=== PATIENT | female | born 1950 | race African-American/Black ===

== ENCOUNTER 2017-01-04 21:02 | Observation (INO) | payer MEDICARE, OTHER ==
[2017-01-04] MEDS ORDERED: ASPIRIN 81 MG TABLET, CHEWABLE PO ONE (21:22)
[2017-01-04 22:30] LABS: ABSOLUTE BASOPHILS # (AUTO) 0.1 10^3/uL (0.0-0.2); ABSOLUTE EOSINOPHILS # (AUTO) 0.1 10^3/uL (0.0-0.6); ABSOLUTE LYMPHOCYTES (AUTO) 1.6 10^3/uL (0.5-4.7); ABSOLUTE MONOCYTES (AUTO) 0.4 10^3/uL (0.1-1.4); ABSOLUTE NEUT (AUTO) 5.9 10^3/uL (1.7-8.2); BASOPHILS % (AUTO) 0.7 % (0-2); EOSINOPHILS % (AUTO) 0.7 % (0-6); HEMOGLOBIN 11.6 g/dL (12.0-15.5); HGB HCT DIFFERENCE -2.2; LYMPHOCYTES % (AUTO) 19.6 % (13-45); MEAN CORPUSCULAR HEMOGLOBIN 27.7 pg (27.0-33.4); MEAN CORPUSCULAR HGB CONC 31.3 g/dL (32.0-36.0); MEAN CORPUSCULAR VOLUME 89 fl (80-97); MONOCYTES % (AUTO) 5.5 % (3-13); RED BLOOD COUNT 4.18 10^6/uL (3.72-5.28); RED CELL DISTRIBUTION WIDTH 15.6 % (11.5-14.0); SEGMENTED NEUTROPHILS % (AUTO) 73.5 % (42-78)
--- NOTE | 2017-01-04 22:33 | EKG REPORT ---
SEVERITY:- BORDERLINE ECG - SINUS RHYTHM BORDERLINE T ABNORMALITIES, ANT-LAT LEADS ST ELEVATION, ANTERIOR LEADS V1 AND V2, CONSIDER WI : Confirmed by: Sadie Goldstein 04-Jan-2017 22:32:35
--- NOTE | 2017-01-04 22:44 | RADIOLOGY REPORT (SQ) ---
EXAM DESCRIPTION: CHEST SINGLE VIEW COMPLETED DATE/TIME: 01/04/2017 10:37 pm REASON FOR STUDY: CP COMPARISON: May 2015 EXAM PARAMETERS: NUMBER OF VIEWS: One view. TECHNIQUE: Single frontal radiographic view of the chest acquired. RADIATION DOSE: NA LIMITATIONS: None. FINDINGS: LUNGS AND PLEURA: No opacities, masses or pneumothorax. No pleural effusion. MEDIASTINUM AND HILAR STRUCTURES: No masses. Contour normal. HEART AND VASCULAR STRUCTURES: Heart normal in size. Normal vasculature. BONES: No acute findings. HARDWARE: None in the chest. OTHER: No other significant finding. IMPRESSION: NO ACUTE RADIOGRAPHIC FINDING IN THE CHEST. TECHNICAL DOCUMENTATION: JOB ID: [id number]
[2017-01-04 22:47] LABS: ALANINE AMINOTRANSFERASE 45 U/L (9-52); ALBUMIN 4.3 g/dL (3.5-5.0); ALKALINE PHOSPHATASE 114 U/L (38-126); ANION GAP 11 (5-19); ASPARTATE AMINO TRANSFERASE 25 U/L (14-36); BILIRUBIN,DIRECT 0.3 mg/dL (0.0-0.4); BILIRUBIN,TOTAL 0.8 mg/dL (0.2-1.3); BLOOD UREA NITROGEN 13 mg/dL (7-20); CALCIUM 9.7 mg/dL (8.4-10.2); CARBON DIOXIDE 27 mmol/L (22-30); CHLORIDE 103 mmol/L (98-107); CREATINE KINASE 118 U/L (30-135); CREATININE RESULT 0.95 mg/dL (0.52-1.25); GLUCOSE 115 mg/dL (75-110); POTASSIUM 3.5 mmol/L (3.6-5.0); SODIUM 140.6 mmol/L (137-145); TOTAL PROTEIN 8.2 g/dL (6.3-8.2)
[2017-01-04] MEDS ORDERED: FENTANYL CITRATE INJ/PF 100 MCG/2 ML AMPUL IV ONE (22:53)
[2017-01-04 22:58] LABS: CREATINE KINASE MB 0.63 ng/mL (<4.55)
[2017-01-04 22:59] LABS: TROPONIN I < 0.012 ng/mL
--- NOTE | 2017-01-04 23:53 | ER Document Report ---
ED General - General Mode of Arrival: Ambulatory Information source: Patient TRAVEL OUTSIDE OF THE [place] IN LAST 30 DAYS: No <LUPE CASILLAS - Last Filed: 01/05/17 03:58> <DEIDRE HERNANDEZ - Last Filed: 01/17/17 11:21> - General Chief Complaint: Neck Pain < 24hrs old Stated Complaint: NECK AND SHOULDER PAIN Time Seen by Provider: 01/04/17 21:36 Notes: Patient is a 66-year-old female who presents to the emergency department today with complaints of right-sided neck pain. Patient states that she is currently going to physical therapy from a fall several weeks ago and she began hurting at physical therapy yesterday and it has been much worse today. Patient states it feels like there is a "muscle spasm" in her neck. Patient mentions she has had left arm numbness and tingling prior to arrival. Patient denies any chest pain, shortness of breath, or history of [place]. (LUPE CASILLAS) - Related Data Allergies/Adverse Reactions: Penicillins Allergy (Mild, Verified 12/10/15 05:43) rash Home Medications: Current Home Medications Amlodipine Besylate [Norvasc 10 mg Tablet] 10 mg PO DAILY 01/05/17 [History] Aspirin [Aspirin EC] 81 mg PO DAILY 01/05/17 [History] Atorvastatin Calcium [Lipitor 20 mg Tablet] 20 mg PO DAILY 01/05/17 [History] Diclofenac Sodium [Voltaren] 1 applic TP DAILY 01/05/17 [History] Ergocalciferol (Vitamin D2) [Vitamin D2] 50,000 unit PO SA@1000 01/05/17 [ History] Ezetimibe [Zetia 10 mg Tablet] 10 mg PO QHS 01/05/17 [History] Glimepiride [Amaryl 1 mg Tablet] 1 mg PO BID 01/05/17 [History] Hydrochlorothiazide 25 mg PO DAILY 01/05/17 [History] Levothyroxine Sodium [Synthroid 0.1 mg Tablet] 0.1 mg PO DAILY 01/05/17 [History ] Loratadine [Claritin 10 mg Tablet] 10 mg PO DAILYP PRN 01/05/17 [History] Potassium Chloride [Klor-Con 10 Meq Tablet.sa] 10 meq PO DAILY 01/05/17 [History ] Sitagliptin Phosphate [Januvia] 100 mg PO DAILY 01/05/17 [History] Valsartan [Diovan 160 mg Tablet] 160 mg PO DAILY 01/05/17 [History] Past Medical History - General Information source: Patient - Social History Smoking Status: Unknown if Ever Smoked Cigarette use (# per day): No Lives with: Family Family History: Reviewed & Not Pertinent, CAD, Malignancy Patient has suicidal ideation: No Patient has homicidal ideation: No - Past Medical History Cardiac Medical History: Reports: Hx Hypercholesterolemia, Hx Hypertension Endocrine Medical History: Reports: Hx Diabetes Mellitus Type 2 Musculoskeltal Medical History: Reports Hx Arthritis - hands Past Surgical History: Reports: Hx Appendectomy, Hx Cholecystectomy, Hx Hysterectomy - partial - Immunizations Immunizations up to date: Yes Hx Diphtheria, Pertussis, Tetanus Vaccination: Yes <LUPE CASILLAS - Last Filed: 01/05/17 03:58> Review of Systems - Review of Systems Constitutional: No symptoms reported EENT: See HPI, Throat pain Cardiovascular: denies: Chest pain Respiratory: denies: Short of breath Gastrointestinal: No symptoms reported Genitourinary: No symptoms reported Female Genitourinary: No symptoms reported Musculoskeletal: See HPI, Muscle pain - right neck swelling Skin: No symptoms reported Hematologic/Lymphatic: No symptoms reported Neurological/Psychological: No symptoms reported -: Yes All other systems reviewed and negative <LUPE CASILLAS - Last Filed: 01/05/17 03:58> Physical Exam <LUPE CASILLAS - Last Filed: 01/05/17 03:58> <DEIDRE HERNANDEZ - Last Filed: 01/17/17 11:21> - Vital signs Vitals: Temp Pulse Resp BP Pulse Ox 98.7 F 65 20 187/79 H 98 01/04/17 21:05 01/04/17 21:05 01/04/17 21:05 01/04/17 21:05 01/04/17 21:05 - Notes Notes: Physical Exam: General: Alert, appears well. HEENT: Normocephalic. Atraumatic. PERRL. Extraocular movements intact. Oropharynx clear. Post nasal drainage. No posterior pharynx swelling or exudate. Tenderness with palpation with associated swelling over right parotid gland. Neck: Supple. Non-tender. Posterior cervical muscle tenderness with palpation. Respiratory: No respiratory distress. Clear and equal breath sounds bilaterally. Cardiovascular: Regular rate and rhythm. Abdominal: Normal Inspection. Non-tender. No distension. Normal Bowel Sounds. Back: Non-tender. No deformity or step off. Extremities: Moves all four extremities. Upper extremities: Normal inspection. Normal ROM. Lower extremities: Normal inspection. No edema. Normal ROM. Neurological: Normal cognition. AAOx4. Normal speech. Psychological: Normal affect. Normal Mood. Skin: Warm. Dry. Normal color. (LUPE CASILLAS) Course - Laboratory Result Diagrams: 01/04/17 22:15 01/04/17 22:15 <LUPE CASILLAS - Last Filed: 01/05/17 03:58> - Laboratory Result Diagrams: 01/04/17 22:15 01/05/17 10:05 <DEIDRE HERNANDEZ - Last Filed: 01/17/17 11:21> - Re-evaluation Re-evalutation: 01/05/17 01:46 Patient presents the emergency department with chief complaint of neck and shoulder pain. She is holding her neck stiff and complaining of pain going down the right side of her neck parathoracic region into her right shoulder. She is a patient of Dr. Bean fell a few weeks ago down a flight of stairs in [place] and Dr. Bean has her doing physical therapy. Daughters at the bedside states she has been doing activities lately that have been activity that she has not done in the past 30-40 years. She woke up this morning she was found some tension in the right side of her neck with holding it stiff and sore not wanting to move it then experienced pain into her parathoracic region. She said she also had some tingling in left hand which lasted about 5 minutes and then resolved no headache blurred vision or double vision. She has no midline cervical tenderness at the para cervical parathoracic on the right with good radial ulnar axillary median nerve. She also complained of a sore throat and pain over her right parotid gland area. The triage nurse did an EKG which was brought straight back to me and highly abnormal compared to her previous showing ST segment changes anteriorly without reciprocal changes. I spoke on the telephone with Dr. Goldstein who read this EKG as well and he was highly concerned patient vehemently denies any chest pain shortness of breath diaphoresis nausea GI appetite or exertional chest pain. She does have a history of [id number] diabetes and high blood pressure. She has seen Dr. Buckner in the past told that she has angina and has a stress test a few years ago which was negative. CT of the neck was negative for acute pathology initial troponin chest x-ray labs are all stable. And is sleeping. Spoke with Dr. Lewis wanted the patient to be seen by cardiology first thing in the a.m. talk to Dr. Ramirez and do serial troponins admit her cardiac consult in the a.m. for observation and this was explained to the family as well. 01/05/17 02:[address] Ramirez to do a second set of cardiac enzymes is negative and unchanged from the previous. (DEIDRE HERNANDEZ) - Vital Signs Vital signs: Temp Pulse Resp BP Pulse Ox 98.5 F 80 18 166/70 H 99 01/06/17 17:03 01/06/17 17:03 01/06/17 17:03 01/06/17 17:03 01/06/17 17:03 - Laboratory Laboratory results interpreted by me: 01/04/17 01/04/17 22:15 22:15 Hgb 11.6 L MCHC 31.3 L RDW 15.6 H Potassium 3.5 L Est GFR (Non-Af Amer) 59 L Glucose 115 H - EKG Interpretation by Me Additional EKG results interpreted by me: 01/05/17 03:19 EKG #[address] segment change from previous no reciprocal changes. EKG #2 sinus at 57 bpm nonspecific T-wave abnormalities. (DEIDRE HERNANDEZ) Discharge <LUPE CASILLAS - Last Filed: 01/05/17 03:58> - Discharge Admitting Provider: Hospitalist Unit Admitted: Telemetry <DEIDRE HERNANDEZ - Last Filed: 01/17/17 11:21> - Discharge Clinical Impression: Abnormal EKG Cervical strain Qualifiers: Encounter type: initial encounter Qualified Code(s): S16.1XXA - Strain of muscle, fascia and tendon at neck level, initial encounter Condition: Stable Disposition: ADMITTED OBSERVATION Scribe Attestation: 01/05/17 02:42 I personally performed the services described in the documentation reviewed the documentation recorded by my scribe in my presence and it accurately and completely records my words and actions (DEIDRE HERNANDEZ) Scribe Documentation - Scribe Written by Scribe:: Jayla Charlton, 01/05/2017 acting as scribe for :: Diego <LUPE CASILLAS - Last Filed: 01/05/17 03:58>
--- NOTE | 2017-01-05 01:11 | RADIOLOGY REPORT (SQ) ---
EXAM DESCRIPTION: CT SOFT TISSUE NECK WITH COMPLETED DATE/TIME: 01/05/2017 12:22 am REASON FOR STUDY: neck pain swelling COMPARISON: CT cervical spine 02/05/2013 TECHNIQUE: Post IV contrasted scanning from skull base through lung apices with review of bone, soft tissue and lung windows. Reconstructed coronal and sagittal MPR images reviewed. All images stored on PACS. All CT scanners at this facility use dose modulation, iterative reconstruction, and/or weight based d osing when appropriate to reduce radiation dose to as low as reasonably achievable (ALARA). [facility]: Dose Right [facility]: CareDose [facility]: Dose Right [facility]: Teradose 4D [facility]: OneTag CONTRAST TYPE AND DOSE: contrast/concentration: Isovue 370.00 mg/ml; Total Contrast Delivered: 75.0 ml; Total Saline Delivered: 55.1 ml RENAL FUNCTION: Creatinine 0.95 RADIATION DOSE: 16.49 . LIMITATIONS: None. FINDINGS: SKULL BASE: Intact. MAJOR SALIVARY GLANDS: No solid or cystic masses. No inflammatory changes. LYMPHADENOPATHY: No adenopathy. MUCOSAL MASSES OR ASYMMETRY: No mucosal masses or asymmetry. LARYNX/CORDS: No abnormal findings. VASCULAR STRUCTURES: The major vessels are patent. LUNG APICES: Clear. BONES: Multilevel degenerative changes in the spine. THYROID: Normal size. No masses. PARANASAL SINUSES: Clear. IMPRESSION: No acute findings. TECHNICAL DOCUMENTATION: JOB ID: [id number] RI-64 Quality ID # [id number]: Final reports with documentation of one or more dose reduction techniques (e.g., Au tomated exposure control, adjustment of the mA and/or kV according to patient size, use of iterative reconstruction technique) 2010 [employer]- All Rights Reserved
[2017-01-05] MEDS ORDERED: ASPIRIN 325 MG TABLET PO ONE (01:49)
[2017-01-05 03:31] LABS: ADD ON TESTING BLD IN LAB ACKNOWLEDGE
[2017-01-05 03:40] LABS: MAGNESIUM 1.7 mg/dL (1.6-2.3)
[2017-01-05] MEDS ORDERED: DEXTROSE 50%-WATER 25 GM/50 ML DISP.SYRIN IV PRN ×2 (04:16)
[2017-01-05] MEDS ORDERED: GLUCAGON,HUMAN RECOMB 1 MG INJ IM PRN (04:16)
[2017-01-05] MEDS ORDERED: DEXTROSE 40% GEL 15 GM TUBE PO PRN ×2 (04:16)
[2017-01-05] MEDS ORDERED: MAGNESIUM HYDROXIDE SUSP 30 ML UDCUP PO PRN (04:28)
[2017-01-05] MEDS ORDERED: POTASSIUM CHLORIDE 20 MEQ/15 ML UDCUP PO ONE ×2 (04:30→06:00)
[2017-01-05 07:35] LABS: Direct HDL 82 mg/dL (>40); TRIGLYCERIDES 66 mg/dL (<150)
[2017-01-05 07:46] LABS: DIRECT LDL 47 mg/dL (<100)
[2017-01-05] MEDS: OXYCODONE HCL IR 5 MG TABLET PO PRN ×3 (08:53→23:57)
[2017-01-05] MEDS: ACETAMINOPHEN 325 MG TABLET PO PRN ×2 (08:53→14:54)
[2017-01-05] MEDS: ENOXAPARIN SODIUM INJ 40 MG/0.4 ML DISP.SYRIN SUBCUT SCH (08:54)
--- NOTE | 2017-01-05 09:52 | PDOC H&P ---
History of Present Illness Admission Date/PCP: 01/05/17 02:49 CLEMENTINA DANIELS MD Patient complains of: Right neck pain History of Present Illness: MERCEDES MODI is a 66 year old obese -[place] female with underlying type 2 diabetes mellitus, hypertension, hypothyroidism, and hyperlipidemia, but with no other known cardiac disease, having undergone a negative stress test several years ago by Dr. Leiws who presents to the emergency room for evaluation of new onset of pronounced muscle spasm-like pain on the right side of her neck that radiates to her right shoulder. No prior such pain. She has been undergoing physical therapy after suffering a fall down a flight of stairs several weeks ago. However, she again reiterates this pain in the right side of her neck is new. 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 Went to work yesterday. Abnormal EKG, which ER physician discussed with Dr. Goldstein, on-call crop farm helper , prior to my being called. Per emergency room physician, Dr. Goldstein reviewed the tracing online and was quite concerned about its appearance. He felt the patient should be placed at least an observation bed with trending of troponins , with consult to Dr. Lewis, her usual crop farm helper. There has been no chest pain. Brief episode of left upper extremity numbness and tingling, which resolved prior to her arrival in the emergency room, and has not recurred. Negative stress test several years ago. No prior heart catheterization. Denies nausea vomiting, fever or chills. Patient has been discussed with emergency room physician who evaluated the patient. . Laboratory results are listed in [employer] and are reviewed. X-ray summary results are listed below, with full report(s) reviewed. . EKGs reviewed and compared to prior tracing from August 12, 2014. Social history/personal habits: . Has children. 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 No tobacco alcohol or illicit drug use. Allergies/adverse reactions are listed in [employer] and are reviewed. Uncertain if she can tolerate cephalosporins. Home medications initially autopopulated into [facility] may not accurately reflect patient's true medications, dosages, and/or frequencies. accessibility lift technician to reconcile medications. Unfortunately, patient not certain of all medications/dosages/frequencies. REVIEW OF SYSTEMS: Constitutional: No fever or chills. Eyes: Wears glasses. ENT: No swallowing problems or complaints. Denies hearing loss. See history and present illness. Pulmonary: No current complaints. Cardiovascular: No current complaints, including chest pain. Gastrointestinal: No current complaints, including nausea or vomiting. Skin: No current complaints, including rashes. Hematologic: Denies easy bruising. Neurologic: No current complaints, including numbness or tingling. Musculoskeletal: Arthritis. Psychiatric: Denies anxiety or depression. Endocrine: No current complaints, including polyuria. Genitourinary: No current complaints, including dysuria. PHYSICAL EXAMINATION: 5 feet 6 inches tall. 89 kg. BMI 31.7 kg/m. Blood pressure 178/81. 97% saturation on room air. Pulse 60 and regular. Respirations are 17 and unlabored. Temperature 98.7. Obese otherwise well-developed -[place] female appearing a bit younger than her stated age. Initially somewhat sleepy from pain medicine, but rather quickly awoke to answer questions appropriately. Pleasant and cooperative. Daughter is present at her side; patient approves. Female emergency room nurse Johanne is present. Skin is warm and dry. No grossly obvious evidence of rash in areas of skin examined. No subcutaneous nodules palpated. ENT: Hearing grossly normal to normal conversation. Tongue midline on protrusion pink and slightly tacky. Eyes: No scleral icterus. Pupils equal and reactive to light at 4 mm. Mercer conjunctivae. Neck rather tender on the right side; even the slightest movement of her head makes the pain increase fairly significantly. Palpation not performed due to these complaints. Keeps her head turned slightly toward the left. Cervical spine itself is nontender to palpation. Midline trachea. No palpable thyroid nodule mass enlargement or tenderness. Lymphatic: No palpable cervical or clavicular nodes. Neck and lymphatic exams limited by patient body habitus along with her discomfort. Psychiatric: Reasonable insight into acute and chronic medical issues. Oriented to time location and why here. Lungs: Auscultation reveals clear and equal breath sounds bilaterally. No use of accessory respiratory muscles. Cardiovascular: Heart regular rate and rhythm, without gallop murmur or rub. No carotid or abdominal aortic bruits. No ankle or pedal edema. Faintly palpable dorsalis pedis pulses. Abdomen:soft somewhat obese nontender with positive bowel sounds. Unable to adequately evaluate abdomen for masses or organomegaly due to body habitus. Compression of neither her upper abdomen or sternum produces any chest discomfort. Extremities: Feet are warm and dry. No calf tenderness to compression. No grossly obvious visual evidence of calf swelling. Gentle manipulation of lower extremities fails to reveal any obvious evidence of injury or instability to knees hips or ankles. Neurologic: Cranial Nerves II through XII are grossly intact with the exception that turning head from side to side and trapezius flexion not performed due to discomfort. Light touch intact at face, upper and lower extremities. Motor function of major muscle groups upper and lower extremities 5 over 5 and symmetric. Patellar reflexes absent. Absent Babinski. No nystagmus. Past Medical History Cardiac Medical History: Reports: Hyperlipidema, Hypertension Denies: Coronary Artery Disease, Myocardial Infarction Pulmonary Medical History: Denies: Asthma, Bronchitis, Chronic Obstructive Pulmonary Disease (COPD), Pneumonia, Sleep Apnea EENT Medical History: Reports: Eyes - Glasses Denies: Ears, Throat Neurological Medical History: Denies: Hemorrhagic CVA, Ischemic CVA, Seizures Endocrine Medical History: Reports: Diabetes Mellitus Type 2, Hypothyroidism Denies: Diabetes Mellitus Type 1, Hyperthyroidism Renal/ Medical History: Reports: None Musculoskeltal Medical History: Reports: Arthritis - hands Skin Medical History: Reports: None Psychiatric Medical History: Denies: Alcohol Dependency, Depression, General Anxiety Disorder, Substance Abuse, Tobacco Dependency Infectious Medical History: Denies: Clostridium Difficile, Hepatitis B, Hepatitis C, Methicillin- Resistant Staph Aureus Past Surgical History Past Surgical History: Reports: Appendectomy, Hysterectomy - partial Denies: Cholecystectomy Social History Information Source: Patient, Emergency Med Personnel, [facility] Records Lives with: Family Smoking Status: Unknown if Ever Smoked Frequency of Alcohol Use: None Drugs: None - Advance Directive Resuscitation Status: Full Code Surrogate healthcare decision maker:: 2 daughters Family History Family History: Reviewed & Not Pertinent, CAD, Malignancy Parental Family History Reviewed: Yes - Parents of cancer. Children Family History Reviewed: Yes - Healthy Sibling(s) Family History Reviewed.: Yes - Diabetic sister. Medication/Allergy Allergies/Adverse Reactions: Penicillins Allergy (Mild, Verified 12/10/15 05:43) rash Physical Exam Vital Signs: Temp Pulse Resp BP Pulse Ox 98.7 F 65 15 178/84 H 99 01/04/17 21:05 01/04/17 21:05 01/05/17 03:01 01/05/17 03:01 06/14/17 03:01 Results Impressions: Chest X-Ray 01/04/17 21:22 IMPRESSION: NO ACUTE RADIOGRAPHIC FINDING IN THE CHEST. Soft Tissue Neck CT 01/04/17 22:53 IMPRESSION: No acute findings. Assessment & Plan - Diagnosis (1) Abnormal EKG Is this a current diagnosis for this admission?: YesPlan: Troponin 2 negative so far. Repeat EKG also reviewed. Strongly encouraged patient notify staff should she develop chest pain. Serial troponins. Repeat EKG. Lipid panel. Cardiology consult. (2) Neck pain on right side Is this a current diagnosis for this admission?: YesPlan: MRI of the cervical spine. Denies previous neck injury; See history and present illness.. I have strongly encouraged patient not to get out of bed without notifying staff , to avoid a fall with injury. Knee high SCDs for DVT prophylaxis, along with subcutaneous Lovenox. Impression and plans were discussed with patient and daughter, both of whom concur. Time spent in evaluation and management of patient: 69 minutes. (3) Diabetes mellitus type 2 in obese Is this a current diagnosis for this admission?: YesPlan: Diabetic cardiac diet. Accu-Cheks with appropriate sliding scale coverage. Resume home medications as appropriate once these have been determined and reviewed. (4) HLD (hyperlipidemia) Qualifiers: Hyperlipidemia type: unspecified Qualified Code(s): E78.5 - Hyperlipidemia, unspecified Is this a current diagnosis for this admission?: YesPlan: Lipid panel. Resume home medications as appropriate once these have been determined and reviewed. (5) HTN (hypertension) Qualifiers: Hypertension type: essential hypertension Qualified Code(s): I10 - Essential (primary) hypertension Is this a current diagnosis for this admission?: YesPlan: Resume home medications as appropriate once these have been determined and reviewed. (6) Hypothyroid Qualifiers: Hypothyroidism type: unspecified Qualified Code(s): E03.9 - Hypothyroidism, unspecified Is this a current diagnosis for this admission?: YesPlan: Resume home medications as appropriate once these have been determined and reviewed.
[2017-01-05 11:10] LABS: ANION GAP 10 (5-19); BLOOD UREA NITROGEN 12 mg/dL (7-20); CALCIUM 9.8 mg/dL (8.4-10.2); CARBON DIOXIDE 28 mmol/L (22-30); CHLORIDE 102 mmol/L (98-107); CREATININE RESULT 0.86 mg/dL (0.52-1.25); GLUCOSE 132 mg/dL (75-110); POTASSIUM 4.2 mmol/L (3.6-5.0); SODIUM 140.1 mmol/L (137-145)
--- NOTE | 2017-01-05 11:11 | EKG REPORT ---
SEVERITY:- ABNORMAL ECG - SINUS RHYTHM NONSPECIFIC T ABNORMALITIES, ANT-LAT LEADS : Confirmed by: Sadie Goldstein 05-Jan-2017 11:10:11
--- NOTE | 2017-01-05 11:11 | EKG REPORT ---
SEVERITY:- BORDERLINE ECG - SINUS RHYTHM BORDERLINE T ABNORMALITIES, ANT-LAT LEADS : Confirmed by: Sadie Goldstein 05-Jan-2017 11:09:53
--- NOTE | 2017-01-05 11:42 | RADIOLOGY REPORT (SQ) ---
EXAM DESCRIPTION: CERV SP 4 OR 5 VIEWS COMPLETED DATE/TIME: 01/05/2017 11:10 am REASON FOR STUDY: Cervical pain, radiculopathy E03.9 HYPOTHYROIDISM, UNSPECIFIED E78.5 HYPERLIPIDE RIANA, UNSPECIFIED COMPARISON: None. NUMBER OF VIEWS: Five views including obliques. TECHNIQUE: AP, lateral, obliques and odontoid radiographic images acquired of the cervical spine. LIMITATIONS: None. FINDINGS: MINERALIZATION: Normal. SEGMENTATION: Normal. ALIGNMENT: Normal. VERTEBRAE: Maintained height. No fracture or worrisome bone lesion. DISCS: Multilevel disc space narrowing with osteophytes. POSTERIOR ELEMENTS: Pedicles and facets are intact. No posterior arch defects. Facet arthropathy is present. FORAMINA: Narrowed at the levels of maximal disc and facet disease. HARDWARE: None in the spine. PARASPINAL SOFT TISSUES: Normal. OTHER: No other significant finding. IMPRESSION: SPONDYLOSIS WITHOUT BONE LESION OR FRACTURE. TECHNICAL DOCUMENTATION: JOB ID: [id number] [employer]- All Rights Reserved
[2017-01-05] MEDS: CYCLOBENZAPRINE HCL 10 MG TABLET PO SCH ×2 (14:55→22:44)
[2017-01-05] MEDS: DOCUSATE SODIUM 100 MG CAPSULE PO SCH ×2 (14:56→17:47)
--- NOTE | 2017-01-05 21:19 | CONSULTATION REPORT E ---
Consultation Report NAME: MERCEDES MODI : 1950 AGE: 66Y DATE: 01/05/2017 423 A TO: NEETU KAY M.D. FROM: ARTHUR JAMES M.D. Requesting Physician REASON FOR CONSULTATION: Abnormal EKG. TIME: The patient was seen from 12:20 p.m. to 1 p.m. A total of 40 minutes spent on this patient. HISTORY OF PRESENT ILLNESS: The patient is an 66-year-old Afro [place] female with known history of hypertension, diabetes mellitus, hypothyroidism and hyperlipidemia, who states that yesterday she woke up with severe muscle spasm like pain in the right side of the neck radiating to the right shoulder. She denied any chest pain or discomfort since a long time. In the past several years ago she used to have chest tightness and in 2011 had a negative stress test, which was a nuclear Cardiolite stress test. But the patient's EKG shows mild ST-segment elevation in V1 and V2 and some minimal ST-depression in the anterolateral leads, and clearly the EKG was abnormal. (Suspect Brugada3 syndrome.Will fax EKG to EP for an opinion). The patient denies chest pain or discomfort. There is no PND or orthopnea. There is no shortness of breath. There is no cough or wheezing. There are no palpitations. There is no syncope or near syncope. There is no leg edema. The patient in the past used to describe chest tightness for which a stress test was done as mentioned earlier, which was negative. She has a stressful job at the [employer]. The patient has been active. PAST MEDICAL HISTORY: There is no history of malignancy. The patient wears corrective lenses. There is no history of asthma, no history of COPD, no history of emphysema, no history of sleep apnea, no history of pulmonary embolism, no history of pulmonary hypertension. The patient has a history of diabetes mellitus type 2 non-insulin dependent. She also has a history of hypertension and history of hypothyroidism and hyperlipidemia. There is no history of TIA or CVA. There is no history of chronic kidney disease. There is no history of stroke or TIA or seizure disorder. There is no history of syncope. No history of TIA, no history of vertigo. No history of anxiety, no history of depression. Musculoskeletal: The patient has no arthritic conditions, denies any chronic pain in the back, denies degenerative joint disease. There is no history of jaundice, no history of cirrhosis of the liver. FAMILY HISTORY: Positive for diabetes mellitus, heart problems, high cholesterol, hypertension and stroke. PAST SURGICAL HISTORY: 1. Appendectomy. 2. Bladder surgery. 3. Cardiac catheterization. SOCIAL HISTORY: She is a nonsmoker. There is no history of EtOH abuse. CODE STATUS: The patient is FULL CODE. Her spouse is her surrogate healthcare [id number]. REVIEW OF SYSTEMS: CONSTITUTIONAL: Denies any fever, chills or rigors. HEENT: Denies any headache. No seizures. Eyes: No history of amblyopia or diplopia. No history of amaurosis fugax. Ears: No history of tinnitus, no history of vertigo, no history of hearing loss. Nose: No history of hay fever. No history of nosebleeds, no history of nasal polyps. Mouth: No history of altered taste sensation, no ulcers in the mouth, no bleeding from the gums. Throat: There is no odynophagia or dysphagia. There are no recurrent sore throats. SKIN: There are no skin rashes, there is no pruritus. There is no yellowish discoloration of the skin. There is no skin cancer. There is no psoriasis. NECK: Complains of spasm-like pain in the right side of the neck radiating to the shoulder, probably she woke up on the wrong side of the bed and sprained the neck. There is no history of goiter, no history of lymphadenopathy. The right side of the neck is tender to touch. LUNGS: No history of asthma or COPD. No history of cough or sputum production. No wheezing. No history of sleep apnea. No history of pulmonary embolism. No history of pleuritic chest pain. No history of hemoptysis. CARDIAC: History of hypertension present. She has a past history of cardiac catheterization which did not show any major disease. The patient now has abnormal EKG, which is borderline abnormal. There is minimal ST-segment elevation in V1 and V2 and there are some minimal ST-depressions in the rest of the anterolateral leads. She has no history of HI, no history of congestive heart failure, no history of palpitations, no history of PND, orthopnea or leg edema, no syncope. GASTROINTESTINAL: No history of jaundice. No history of fatty food intolerance. No GI bleed, no history of altered bowel movements. MUSCULOSKELETAL: Denies arthritis or collagen vascular disease. RENAL: No history of chronic kidney disease. No history of UTI. No history of hematuria, polyuria or dysuria. CENTRAL NERVOUS SYSTEM: No history of TIA or CVA. No history of strokes, no history of seizures, no history of headaches or migraines. No history of gait imbalance. PSYCHIATRIC: No history of anxiety or depression. No history of suicidal ideation. No history of homicidal ideation. VASCULAR: No history of calf or buttock claudication. No history of DVT. HEMATOLOGICAL: No history of bleeding diathesis. No history of clotting disorders. MEDICATIONS: 1. Tylenol 650 mg p.o. q.4 h. p.r.n. 2. Aspirin 324 mg p.o. x1. 3. Cyclobenzaprine 5 mg p.o. q.8 h. 4. She is on hypoglycemic precautions with glucose 40% gel 15 gm and 30 gm p.o. respectively p.r.n. hypoglycemia. 5. She is also on hypoglycemic precautions with 50% dextrose 12.5 gm IV and 25 gm IV p.r.n. hypoglycemia. 6. She is on Colace 100 mg b.i.d. 7. She is on Lovenox 40 mg subcutaneously. 8. She is on fentanyl 50 mcg IV x1. 9. Glucagon 1 mg IM p.r.n. hypoglycemia. 10. She is on magnesium hydroxide 20 mL p.o. at bedtime p.r.n. 11. She is on oxycodone 5 mg p.o. q.6 h. p.r.n. 12. She did receive potassium chloride 20 mEq p.o. x1. PHYSICAL EXAMINATION: GENERAL: Patient is mildly obese, in some distress due to neck pain. VITAL SIGNS: She is afebrile with a temperature of 97.9 degrees Fahrenheit. Pulse is 55 beats per minute, blood pressure is 126/60, respirations are 16 per minute, 02 sats are 99% on room air. HEENT: Head is atraumatic, normocephalic. Eyes: Pupils are equal, round, regular, reactive to light and accommodation. Extraocular movements are normal. There is no conjunctival pallor. There is no scleral icterus. Ears: Tympanic membranes are intact. External auditory canals are clear. There are no lesions of the pinna. Nose: There is no deviated nasal septum. There is no inflammation of the nasal mucous membranes. Mouth: Mucous membranes of the mouth are moist. Tongue is moist. There are no ulcers. There is no bleeding from the gums. Throat: There is no redness of the oropharynx. There is no exudate. SKIN: There are no skin rashes. There is no petechia or ecchymosis. There are no skin lesions. NECK: Painful on the right side. There is no lymphadenopathy. There is no goiter. The right side of the neck is tender to touch. LUNGS: There are no accessory muscles of respiration in use. Clear to auscultation and percussion. HEART: S1 and S2 are heard. There is no S3 gallop. There is no S4 gallop. There is a systolic murmur in the left sternal border and the apex. There is no rub. ABDOMEN: Soft, slightly obese, nontender. There is no hepatosplenomegaly. Bowel sounds are well heard. EXTREMITIES: Femorals are slightly diminished. There are no femoral bruits. Leg pulses are well felt. There is no pedal edema. There is no DVT or cellulitis. There is no calf tenderness. There is no cyanosis or clubbing. CENTRAL NERVOUS SYSTEM: The patient is conscious, awake, alert, oriented x3 with no focal deficits. PSYCHIATRIC: The patient appears to be in some distress but is not agitated. Judgment and insight are intact. DIAGNOSTIC TEST RESULTS: On admission earlier, the patient's EKG showed minimal ST-segment elevation in leads V1 and V2 and there are minimal ST-depressions in the rest of the leads, which is very subtle. The EKG done today are also unchanged. The patient's C-spine x-ray shows spondylosis without bone lesion or fracture. The patient's soft tissue neck CT shows no acute findings. The patient's chest x-ray shows no acute radiographic findings in the chest. The patient's 24-hr intake and output is erroneous. The patient's white count is 8000, hemoglobin is 11.6, hematocrit is 37, and platelet count is 145,000. The patient's cardiac enzymes are negative x4. The patient's sodium is 140.1, potassium is 4.2, chloride 102, CO2 is 28, patient's BUN is 12 and creatinine is 0.86. GFR is greater than 60. Glucose is 132. Her calcium is 9.8. The patient's triglycerides are 66, total cholesterol is 160, LDL cholesterol is very good at 47, HDL cholesterol is very good at 82. The patient's TSH is 2.14. The patient's liver function tests are normal. Note: Yesterday the patient's potassium was slightly low at 3.5, and this was replaced and today is normal. IMPRESSION: 1. Abnormal EKG.(Suspect Brugada3 syndrome.Will fax EKG to EP for an opinion) 2. Right neck sprain/strain. 3. Hypertension. 4. Hyperlipidemia. 5. Diabetes mellitus type 2, noninsulin dependent. 6. Hypothyroidism. RECOMMENDATIONS: 1. The patient is asymptomatic in terms of having abnormal EKG and she has not had a stress test since 2011; hence, since the patient does have multiple risk factors such as age, hypertension, diabetes and hyperlipidemia, I would recommend that the patient have an IV Lexiscan Cardiolite stress test. This can be done in the morning. This has been discussed with the patient in detail. 2. Continue her current medications. Note that the patient at home was on valsartan 160 mg p.o. daily and also she was on Januvia 100 mg p.o. daily and also levothyroxine 0.1 mg p.o. daily and hydrochlorothiazide 25 mg p.o. daily and glimepiride 1 mg tablet p.o. b.i.d. She was also on Lipitor 20 mg p.o. daily and she is on Zetia 10 mg p.o. 1 tablet daily. 3. The stress test was discussed in detail with the patient. All questions were answered. NOTE: Forty minutes spent on this patient. This is a highly complex medical decision making involvement in this case. In view of this, the patient's EKG being abnormal and the patient having no chest pain but have to keep in mind that the patient is a diabetic. Also 40 minutes, more than 50% of the time was spent on direct patient care and also discussions with other physician involved in the case including the hospitalist and the nurses. Will follow with you. The stress test has been scheduled for tomorrow. Thanking you. DICTATING PHYSICIAN: NEETU KAY M.D. [id number] PHY#: [id number] ID: [id number] JOB#: [id number] ACCT: [id number] cc:NEETU AKY M.D. > MTDD
[2017-01-06] MEDS: ACETAMINOPHEN 325 MG TABLET PO PRN (00:42)
[2017-01-06] MEDS ORDERED: AMLODIPINE BESYLATE 10 MG TABLET PO ONE (02:00)
[2017-01-06] MEDS: CYCLOBENZAPRINE HCL 10 MG TABLET PO SCH ×2 (06:16→13:42)
[2017-01-06] MEDS: ENOXAPARIN SODIUM INJ 40 MG/0.4 ML DISP.SYRIN SUBCUT SCH (08:59)
[2017-01-06] MEDS: OXYCODONE HCL IR 5 MG TABLET PO PRN (08:59)
--- NOTE | 2017-01-06 09:04 | RADIOLOGY REPORT (SQ) ---
EXAM DESCRIPTION: MRI CERVICAL SPINE COMBO COMPLETED DATE/TIME: 01/05/2017 9:12 pm REASON FOR STUDY: right neck pain; fall severak wks ago E03.9 HYPOTHYROIDISM, UNSPECIFIED E78.5 HY PERLIPIDEMIA, UNSPECIFIED R94.31 ABNORMAL ELECTROCARDIOGRAM ECG EKG COMPARISON: MRI cervical spine 02/21/2015 CT soft tissue neck 01/04/2017 TECHNIQUE: Sagittal and Axial imaging includes T1, T2, STIR and gradient echo sequences. T1 post seun olinium sequences. CONTRAST TYPE AND DOSE: 20 mL Multihance. RENAL FUNCTION: GFR > 60. LIMITATIONS: None. FINDINGS: ALIGNMENT: Normal. VERTEBRAE: Intact. Very bulky anterior osteophyte formation right greater than left compatible with diffuse idiopathic skeletal hyperostosis BONE MARROW: Fatty reactive marrow change along the anterior inferior corner of C3. . No marrow prieto ma worrisome for occult fracture. DISCS: Diffuse decreased T2 weighted intervertebral disc signal. HARDWARE: None in the spine. CORD AND BASE OF BRAIN: Normal in size and signal intensity. SOFT TISSUES: No soft tissue masses. On sagittal T2 tail STIR and T1 images 8-11, there is very mild edema in the prevertebral soft tissues without well-circumscribed hematoma. C1-C2: No significant spinal stenosis. C2-C3: No significant spinal stenosis or exit foraminal stenosis. C3-C4: No significant spinal stenosis or exit foraminal stenosis. Minimal posterior disc bulging. Mi ld left facet arthropathy. C4-C5: No significant spinal stenosis or exit foraminal stenosis. Minimal central posterior disc bul ging C5-C6: No significant spinal stenosis or exit foraminal stenosis. C6-C7: No significant spinal stenosis or exit foraminal stenosis. C7-T1: No significant spinal stenosis or exit foraminal stenosis. UPPER THORACIC: Incompletely imaged. No significant spinal stenosis or exit foraminal stenosis. ENHANCEMENT: No abnormal cervical cord or nerve root enhancement. OTHER: No other significant finding. IMPRESSION: Bulky anterior rightward osteophytes. No significant central canal or foraminal stenosis. No abnormal contrast enhancement of the cervical cord or cervical nerve roots Very mild prevertebral space edema without well-circumscribed abscess or hematoma. No adjacent fract ure is identified by MRI. COMMENT: None. TECHNICAL DOCUMENTATION: JOB ID: [id number]- All Rights Reserved
[2017-01-06] MEDS ORDERED: AMLODIPINE BESYLATE 10 MG TABLET PO SCH (10:00)
[2017-01-06] MEDS ORDERED: REGADENOSON INJ 0.4 MG/5 ML DISP.SYRIN IV ONE (11:40)
[2017-01-06] MEDS ORDERED: MELOXICAM 15 MG TABLET PO ONE (12:30)
[2017-01-06] MEDS ORDERED: DEXAMETHASONE SOD PHOS INJ 10 MG/1 ML VIAL IV ONE (12:30)
[2017-01-06] MEDS: DOCUSATE SODIUM 100 MG CAPSULE PO SCH (13:41)
[2017-01-06] MEDS ORDERED: MAGNESIUM HYDROXIDE SUSP 30 ML UDCUP PO PRN (13:44)
--- NOTE | 2017-01-06 15:50 | PDOC DISCHARGE SUMMARY ---
General - Admit/Disc Date/PCP Admission Date/Primary Care Provider: 01/05/17 04:23 CLEMENTINA DANIELS MD Discharge Date: 01/06/17 - Discharge Diagnosis (1) Abnormal EKG Is this a current diagnosis for this admission?: Yes (3) Diabetes mellitus type 2 in obese Is this a current diagnosis for this admission?: Yes (4) HLD (hyperlipidemia) Is this a current diagnosis for this admission?: Yes (5) HTN (hypertension) Is this a current diagnosis for this admission?: Yes (6) Hypothyroid Is this a current diagnosis for this admission?: Yes - Additional Information Resuscitation Status: Full Code Discharge Diet: Cardiac - Low-fat low-salt, Diabetic - No concentrated sweets Discharge Activity: Activity As Tolerated, Balance Activity w/Rest, Slowly Increase Activity Home Medications: Amlodipine Besylate [Norvasc 10 mg Tablet] 10 mg PO DAILY 01/05/17 Aspirin [Aspirin EC] 81 mg PO DAILY 01/05/17 Atorvastatin Calcium [Lipitor 20 mg Tablet] 20 mg PO DAILY 01/05/17 Diclofenac Sodium [Voltaren] 1 applic TP DAILY 01/05/17 Ergocalciferol (Vitamin D2) [Vitamin D2] 50,000 unit PO SA@1000 01/05/17 Ezetimibe [Zetia 10 mg Tablet] 10 mg PO QHS 01/05/17 Glimepiride [Amaryl 1 mg Tablet] 1 mg PO BID 01/05/17 Hydrochlorothiazide 25 mg PO DAILY 01/05/17 Levothyroxine Sodium [Synthroid 0.1 mg Tablet] 0.1 mg PO DAILY 01/05/17 Loratadine [Claritin 10 mg Tablet] 10 mg PO DAILYP PRN 01/05/17 Potassium Chloride [Klor-Con 10 Meq Tablet.sa] 10 meq PO DAILY 01/05/17 Sitagliptin Phosphate [Januvia] 100 mg PO DAILY 01/05/17 Valsartan [Diovan 160 mg Tablet] 160 mg PO DAILY 01/05/17 Cyclobenzaprine HCl [Flexeril 10 mg Tablet] 5 mg PO Q8 #30 tablet 01/06/17 Methylprednisolone [Medrol Dosepack (4 mg/Tab) 21 Tab/Dosepak] 4 mg PO ASDIR PRN #21 tab.ds.pk 01/06/17 Oxycodone HCl [Oxy-Ir 5 mg Tablet] 5 mg PO Q6HP PRN #30 tablet 01/06/17 Additional Information: Event recorder as outpatient with Dr. Lewis History of Present Illness Patient complains of: Neck pain and arm pain History of Present Illness: MERCEDES MODI is a 66 year old obese -Malag[place] female with underlying type 2 diabetes mellitus, hypertension, hypothyroidism, and hyperlipidemia, but with no other known cardiac disease, having undergone a negative stress test several years ago by Dr. Lewis who presents to the emergency room for evaluation of new onset of pronounced muscle spasm-like pain on the right side of her neck that radiates to her right shoulder. No prior such pain. She has been undergoing physical therapy after suffering a fall down a flight of stairs several weeks ago. However, she again reiterates this pain in the right side of her neck is new. 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 Went to work yesterday. Abnormal EKG, which ER physician discussed with Dr. Goldstein, on-call learning design specialist , prior to my being called. Per emergency room physician, Dr. Goldstein reviewed the tracing online and was quite concerned about its appearance. He felt the patient should be placed at least an observation bed with trending of troponins , with consult to Dr. Lewis, her usual learning design specialist. There has been no chest pain. Brief episode of left upper extremity numbness and tingling, which resolved prior to her arrival in the emergency room, and has not recurred. Negative stress test several years ago. No prior heart catheterization. Denies nausea vomiting, fever or chills. Patient has been discussed with emergency room physician who evaluated the patient. . Laboratory results are listed in [employer] and are reviewed. X-ray summary results are listed below, with full report(s) reviewed. . EKGs reviewed and compared to prior tracing from August 12, 2014. Hospital Course Hospital Course: The patient was admitted to telemetry. Patient noted to have abnormal EKG and therefore was placed in observation. Serial cardiac enzymes were negative for myocardial infarction. Cardiology was consulted and eventually performed a stress test that reportedly was negative for reversible ischemia. Cardiology service cleared the patient to be discharged and recommended an event recorder on an outpatient basis. The patient came with neck discomfort with some radicular discomfort on the right upper extremity. Cervical spine x-ray shows spondylosis but no fracture. Patient eventually had a cervical spine MRI which did not show any significant narrowing on the canal but did reveal some mild Prevertebral edema. There is noted osteophyte formation as well. Patient was given analgesics and muscle relaxants affording some relief of symptoms. Patient was likewise given anti-inflammatory medication including steroid. The rest of the hospital stays unremarkable. Patient wanting to go home and continue treatment on an outpatient basis. She was eventually discharged with above instructions. Physical Exam Vital Signs: Temp Pulse Resp BP Pulse Ox 98.5 F 80 18 146/75 H 99 01/06/17 11:40 01/06/17 11:40 01/06/17 11:40 01/06/17 11:40 01/06/17 11:40 Intake & Output 01/05/17 01/06/17 01/07/17 06:59 06:59 06:59 Intake Total 0 751 Output Total 220 1375 Balance -220 -624 Weight 108.1 kg 111.6 kg General appearance: PRESENT: no acute distress, cooperative Head exam: PRESENT: normocephalic Eye exam: PRESENT: EOMI Mouth exam: PRESENT: moist, neck supple Neck exam: ABSENT: JVD Respiratory exam: PRESENT: clear to auscultation lore. ABSENT: rhonchi, wheezes Cardiovascular exam: PRESENT: RRR. ABSENT: gallop GI/Abdominal exam: PRESENT: hypoactive bowel sounds, soft. ABSENT: distended, tenderness Extremities exam: ABSENT: pedal edema Neurological exam: PRESENT: alert, awake, oriented to situation Skin exam: PRESENT: dry, warm. ABSENT: cyanosis Results Laboratory Results: 01/05/17 10:05 01/05/17 01/05/17 06:37 10:05 Troponin I < 0.012 < 0.012 Impressions: Chest X-Ray 01/04/17 21:22 IMPRESSION: NO ACUTE RADIOGRAPHIC FINDING IN THE CHEST. Soft Tissue Neck CT 01/04/17 22:53 IMPRESSION: No acute findings. Cervical Spine MRI 01/05/17 00:00 IMPRESSION: Bulky anterior rightward osteophytes. No significant central canal or foraminal stenosis. No abnormal contrast enhancement of the cervical cord or cervical nerve roots Very mild prevertebral space edema without well-circumscribed abscess or hematoma. No adjacent fracture is identified by MRI. Cervical Spine X-Ray 01/05/17 00:00 IMPRESSION: SPONDYLOSIS WITHOUT BONE LESION OR FRACTURE. Qualifiers PATEINT BEING DISCHARGED WITH ANY OF THE FOLLOWING DIAGNOSIS?: No Plan Discharge Plan: Follow-up with primary care physician in 1 week. Follow-up with cardiology Dr. Lewis in 1-2 weeks. Time Spent: Less than 30 Minutes
[2017-01-06 17:07] VITALS: BP 166/70
--- NOTE | 2017-01-07 10:46 | PROGRESS NOTE E ---
Progress Note NAME: MERCEDES MODI : 1950 AGE: 66Y DATE: 01/06/2017 ROOM: 423 SUBJECTIVE: The patient still has some pain in the neck but still slightly better. The patient denies any chest pain or discomfort. There is no PND, orthopnea or shortness of breath. There is no palpitation. The patient confirms that she has never had palpitations, dizziness, near syncope, or syncope or sudden . There is no history of sudden in the family. There is no history of syncope in the family. She has no pedal edema. The monitor shows that there are no arrhythmias. Note with the patient's permission, I faxed the EKG to , EP Natural Resources Engineer at [facility]. 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 He told me that the patient has been risk stratified and he gave me a number of EP Cardiology at [facility] who does genetic risk stratification of Brugada Syndrome. I called the number and left a message and I am waiting to hear from them. The patient did have an IV Lexiscan Cardiolite stress test without any complications. OBJECTIVE: GENERAL: The patient is morbidly obese. She is in mild distress due to neck pain on the right side. She is well groomed. VITAL SIGNS: She is afebrile with a temperature of 98.5 degrees Fahrenheit, pulse is 80 beats per minute, blood pressure 146/75, respirations are 18 per minute, O2 saturations are 99% on room air. HEENT: Head is atraumatic, normocephalic. Eyes: Pupils are equal, round, regular, reactive to light and accommodation. Extraocular movements are normal. There is no conjunctival pallor. There is no sclera icterus. Ears: Tympanic membranes are intact. External auditory canals are clear. There are no lesions of the pinna. Nose: There is no deviated nasal septum. There is no inflammation of the nasal mucous membranes. Mouth: Mucous membranes of the mouth are moist. Tongue is moist. There are no ulcers. There is no bleeding from the gums. Throat: There is no redness of the oropharynx. There is no exudate. SKIN: There are no skin rashes. There is no petechia or ecchymosis. There are no skin lesions. NECK: Painful on the right side. Tender to touch on the right side of the neck. There is no lymphadenopathy. There is no goiter. The patient claims that when she swallows it hurts. The carotids are equal. There is no bruit. There is no JVD. LUNGS: There are no accessory muscles of respiration in use. Clear to auscultation and percussion. HEART: S1 and S2 are heard. There is no S3 gallop. There is no S4 gallop. There is a systolic murmur in the left sternal border and the apex. There is no rub. ABDOMEN: Soft, slightly obese, nontender. There is no hepatosplenomegaly. Bowel sounds are well heard. EXTREMITIES: Femorals are slightly diminished. There are no femoral bruits. Leg pulses are well felt. There is no pedal edema. There is no DVT or cellulitis. There is no calf tenderness. There is no cyanosis or clubbing. CENTRAL NERVOUS SYSTEM: The patient is conscious, awake, alert, oriented x3 with no focal deficits. PSYCHIATRIC: The patient appears to be in some distress but is not agitated. Judgment and insight are intact. The patient's blood sugar is 134. The patient underwent a Cardiolite stress test which showed no ischemia or myocardial infarction scar. This has been discussed with the patient also. Discussed with the patient the need to get a 30-day event monitor and I told her that I would make her an appointment at [facility] to see the EP Natural Resources Engineer for genetic risk stratification. I have also asked that her and members of the family also get EKG. IMPRESSION: 1. 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 2. Right neck sprain/strain. 3. Hypertension. 4. Hyperlipidemia. 5. Diabetes mellitus type 2, noninsulin dependent. 6. Hypothyroidism. 7. Date of nuclear stress test for ischemia . Recommendation as mentioned earlier. Will get a 30-day event monitor. Will have the company send it to the patient's home. I have given my cell phone number to the patient to call me if there are any problems. Also discussed this with the patient and the patient's sister. Also I have told the patient that I will make a speedy arrangement for her to be seen by the EP Natural Resources Engineer for genetic risk stratification of Brugada Syndrome. I am waiting to hear from [facility]. Note: Thirty minutes spent on this patient with more than 50% of the time spent in direct patient care. And also this care involved her medications that have been reviewed. Note that this case has a high complex medical decision-making due to the patient's Brugada Syndrome EKG as per . . Will get a 30-day event monitor. Will get an echocardiogram in the office. The stress test was discussed with the patient and the patient's sister. The patient has been given my cell phone number to call me if she has any problems which are palpitations, chest pain, dizziness, near syncope or syncope. DICTATING PHYSICIAN: NEETU KAY M.D. [id number] PHY#: [id number] ID: [id number] JOB#: [id number] ACCT: [id number] cc: >
--- NOTE | 2017-01-13 16:59 | DRAGON STRESS TEST REPORT ---
Intravenous LexiScan Cardiolite stress test using single photon emmision computerized tomographic. Date of procedure: 01/06/2017. Ordering Provider: Dr. Skylar Lewis. Patient Status.: In Patient. Primary CARE Physician: Dr. Ayush Reyes. Indication: Abnormal EKG. Coronary risk factors: Age, type II non-insulin- dependent diabetes mellitus, hypertension, and family history of coronary artery disease. Resting EKG: Sinus Rhythm. Mild ST elevation in leads V1 and V2, mild ST depression in inferolateral leads. And T inversion in lead aVL. Stress EKG: No changes of ischemia. The patient had no chest pain or discomfort, and there were no arrhythmias seen. Reason for termination: Protocol. Conclusions: Normal EKG and hemodynamic response to IV LexiScan. Nuclear data: At rest the patient was given 14.51 millicuries of technetium 99 sestamibi injected intravenously. As per protocol rest non gated SPECT images were obtained. Subsequently the patient was given intravenous LexiScan at a dose of 0.4 mg in 5 mL intravenously, followed by flush with normal saline. Subsequently the stress dose of 44.8 millicuries of technetium 99 sestamibi was injected intravenously. As per protocol stress gated images were obtained. Next Nuclear interpretation: Review of images showed that there is there was liver contamination artifact of the inferior wall. In spite of this all segments of the myocardium had normal perfusion at rest, and normal perfusion post stress with IV LexiScan. All segments of the myocardium had normal motion, contraction, and thickening by gated study. T. I D. ratio was normal at 0.83. Computer read rest, and stress left ventricular ejection fraction were 51 %, and 57 % respectively. Visually both the stress and rest ejection fractions were normal, and greater than 55%. 1. There is no scintigraphic evidence of LexiScan induced myocardial ischemia. 2. There is no scintigraphic evidence of myocardial infarction/scar. Recommendations: Aggressive risk factor modification, and treating the underlying co- morbidities MTDD
== END 2017-01-06 17:40 | disposition home or self-care (01) ==
LOC: ER 21:02 → UNDOADMOB 01-05 02:49 → EH 01-05 02:49 → UNDOADMOB 01-05 04:23 → EH 01-05 04:23 → 4W 01-05 04:43 → EH 01-05 04:43
PROVIDERS: ADMIT Family Medicine; ATTEND Family Medicine
DX: R94.31 Abnormal electrocardiogram [ECG] [EKG] (principal); E11.9 Type 2 diabetes mellitus without complications; E78.5 Hyperlipidemia, unspecified; I10 Essential (primary) hypertension; E03.9 Hypothyroidism, unspecified; E66.01 Morbid (severe) obesity due to excess calories; M47.892 Other spondylosis, cervical region; S13.9XXA Sprain of joints and ligaments of unspecified parts of neck, initial encounter; S16.1XXA Strain of muscle, fascia and tendon at neck level, initial encounter; W10.9XXA Fall (on) (from) unspecified stairs and steps, initial encounter; M25.511 Pain in right shoulder; J02.9 Acute pharyngitis, unspecified; Z79.899 Other long term (current) drug therapy; Z79.84 Long term (current) use of oral hypoglycemic drugs; Z79.82 Long term (current) use of aspirin; Z82.49 Family history of ischemic heart disease and other diseases of the circulatory system; Z90.49 Acquired absence of other specified parts of digestive tract; Z80.9 Family history of malignant neoplasm, unspecified
CPT/HCPCS: 93005 ×2; 99285; 96374; 36415 ×2; 82553; 82962 ×2; 82550; 83735; 84443; 85025; 80048; 80053; 84484 ×2; 80061; 93017; 72156; 72050; 71010; 78452; 70491; 93010 ×2; G0378 ×2; A9577; A9500; A9270 ×13; J2785; J3010; J1650 ×2; J3490 ×2; J1100; Q9969

== ENCOUNTER 2017-02-01 00:33 | Emergency (ER) | payer MEDICARE, OTHER ==
[2017-02-01] MEDS ORDERED: TRAMADOL HCL 50 MG TABLET PO ONE (02:39)
--- NOTE | 2017-02-01 02:41 | ER Document Report ---
ED General - General Chief Complaint: Neck Pain < 24hrs old Stated Complaint: NECK PAIN Time Seen by Provider: 02/01/17 02:07 Notes: Patient is a pleasant 66-year-old female presents with complaint of pain over the right side of the neck. Pain in the right paraspinal musculature in the right trapezius muscle. She has chronic neck pain that comes and goes over this area. She is actually admitted for this back in December and had MRIs of her neck which just showed some pre-vertebral edema. At that time he also did a stress test she had some EKG changes. Stress test was negative. Patient says that at home she takes Mobic and Flexeril for pain. Today these medicines did not help and therefore she came to the ER. No weakness or numbness into the hand. No fevers. No new trauma. No other complaints at this time. TRAVEL OUTSIDE OF THE [place] IN LAST 30 DAYS: No - Related Data Allergies/Adverse Reactions: Penicillins Allergy (Mild, Verified 12/10/15 05:43) rash Past Medical History - Social History Smoking Status: Never Smoker Chew tobacco use (# tins/day): No Frequency of alcohol use: None Drug Abuse: None Family History: Reviewed & Not Pertinent, CAD, Malignancy Patient has suicidal ideation: No Patient has homicidal ideation: No - Past Medical History Cardiac Medical History: Reports: Hx Hypercholesterolemia, Hx Hypertension Denies: Hx Coronary Artery Disease, Hx Heart Attack Pulmonary Medical History: Denies: Hx Asthma, Hx Bronchitis, Hx COPD, Hx Pneumonia, Hx Sleep Apnea Neurological Medical History: Denies: Hx Cerebrovascular Accident, Hx Seizures Endocrine Medical History: Reports: Hx Diabetes Mellitus Type 2, Hx Hypothyroidism. Denies: Hx Diabetes Mellitus Type 1, Hx Hyperthyroidism Renal/ Medical History: Denies: Hx Peritoneal Dialysis Musculoskeltal Medical History: Reports Hx Arthritis - hands Psychiatric Medical History: Denies: Hx Depression Infectious Medical History: Denies: Hx C-Diff, Hx MRSA Past Surgical History: Reports: Hx Abdominal Surgery - bladder, Hx Appendectomy , Hx Hysterectomy. Denies: Hx Cholecystectomy, Hx Pacemaker - Immunizations Immunizations up to date: Yes Hx Diphtheria, Pertussis, Tetanus Vaccination: Yes Review of Systems - Review of Systems Notes: My Normal Review Basic REVIEW OF SYSTEMS: CONSTITUTIONAL : Denies fever, chills, or sweats. Denies recent illness. EENT: Denies eye, ear, throat, or mouth pain or symptoms. Denies nasal or sinus congestion. CARDIOVASCULAR: Denies chest pain. RESPIRATORY: Denies cough, cold, or chest congestion. Denies shortness of breath, difficulty breathing, or wheezing. GASTROINTESTINAL: Denies abdominal pain. Denies nausea, vomiting, or diarrhea. Denies constipation. Last BM: MUSCULOSKELETAL: neck pain SKIN: Denies rash or skin lesions. NEUROLOGICAL: Denies altered mental status or loss of consciousness. Denies headache. Denies weakness or paralysis or loss of use of either side. Denies problems with gait or speech. Denies sensory or motor loss. ALL OTHER SYSTEMS REVIEWED AND NEGATIVE. Physical Exam - Vital signs Vitals: Temp Pulse Resp BP Pulse Ox 98.6 F 73 18 178/92 H 96 02/01/17 00:41 02/01/17 00:41 02/01/17 00:41 02/01/17 00:41 02/01/17 00:41 - Notes Notes: General Appearance: Well nourished, alert, cooperative, no acute distress, moderate obvious discomfort. Vitals: reviewed, See vital signs table. Head: no swelling or tenderness to the head Eyes: PERRL, EOMI, Conjuctiva clear Neck: Supple, pain palpation over the right cervical paraspinal musculature and right trapezius muscle. Extremities: strength 5/5 in all extremities, good pulses in all extremities, no swelling or tenderness in the extremities, no edema. Skin: warm, dry, appropriate color, no rash Neuro: speech clear, oriented x 3, normal affect, responds appropriately to questions. Course - Re-evaluation Re-evalutation: 02/01/17 04:36 Reevaluation patient's pain is much improved. She did tolerate Ultram well and it did improve her pain. I will write her prescription for Ultram so that she can take it if her other medications are not helping. I do suspect her pain is musculoskeletal based on the fact it is very easily reproducible with palpation , it is chronic recurring, and she has had admission for previous workup including MRIs for this pain in the recent past. Will be discharged home but is encouraged to return to ER if she has worsening of her pain. Patient agrees with plan will be discharged home. Dictation of this chart was performed using voice recognition software; therefore, there may be some unintended grammatical errors. - Vital Signs Vital signs: Temp Pulse Resp BP Pulse Ox 98.6 F 73 18 178/92 H 96 02/01/17 00:41 02/01/17 00:41 02/01/17 00:41 02/01/17 00:41 02/01/17 00:41 Discharge - Discharge Clinical Impression: Neck pain on right side Cervical strain Qualifiers: Encounter type: initial encounter Qualified Code(s): S16.1XXA - Strain of muscle, fascia and tendon at neck level, initial encounter Condition: Good Disposition: HOME, SELF-CARE Additional Instructions: Based on my exam I suspect you are having recurrent spasming and pain in the muscles of your neck from your previous injury. I gave you a medication called Ultram which did help your pain. Ultram may make you sleepy so please do not drive and becareful when you stand up after taking the medicaiton. Please follow up closely with your doctor for reevaluation and further management. The Ultram can be addicting if take regularly so please only take the medication if your pain is severe and your Mobic and Flexeril are not controlling your pain. Prescriptions: Tramadol HCl [Ultram] 50 mg PO Q8 PRN #12 tablet PRN Reason: For Pain Referrals: KANIKA GIBSON MD [Primary Care Provider] - Follow up in 3-5 days
[2017-02-01 04:45] VITALS: BP 156/83
== END 2017-02-01 04:43 | disposition home or self-care (01) ==
LOC: ER 00:33
DX: S16.1XXA Strain of muscle, fascia and tendon at neck level, initial encounter (principal); X58.XXXA Exposure to other specified factors, initial encounter; G89.29 Other chronic pain; M54.2 Cervicalgia; E78.00 Pure hypercholesterolemia, unspecified; E03.9 Hypothyroidism, unspecified; I10 Essential (primary) hypertension; E11.9 Type 2 diabetes mellitus without complications; Z88.0 Allergy status to penicillin; Z90.710 Acquired absence of both cervix and uterus
CPT/HCPCS: 99283; A9270

== ENCOUNTER → 2017-03-14 | Outpatient (CLI) | payer MEDICARE, OTHER ==
--- NOTE | 2017-03-16 21:31 | WOMENS IMAGING REPORT ---
EXAM DESCRIPTION: 3D SCREENING MAMMO BILAT COMPLETED DATE/TIME: 03/14/2017 1:32 pm REASON FOR STUDY: ROUTINE SCREENING; Z12.31 Z12.31 ENCNTR SCREEN MAMMOGRAM FOR MALIGNANT NEOPLASM O F KANE COMPARISON: Multiple since 2008 TECHNIQUE: Standard craniocaudal and mediolateral oblique views of each breast recorded using digita l acquisition and breast tomosynthesis. LIMITATIONS: None. FINDINGS: Findings present which are benign by mammographic criteria. No suspicious masses, calcifi cations or architectural distortion. Pertinent benign findings: Stable benign fibroadenoma right deep medial breast 1 cm in size Read with the assistance of CAD. .[facility] - R2 Cenova Version 1.3 .[facility] - R2 Cenova Version 1.3 .[facility] - R2 Cenova Version 2.4 .[facility] [place]2 Cenova Version 2.4 .[facility] - R2 [employer] Forming Version 9.2 Benign mammographic findings may include one or more of the following: Smooth masses, popcorn/rim/co arse calcifications, asymmetries, post-procedure changes, and lesions with long-standing stability. IMPRESSION: BENIGN MAMMOGRAPHIC FINDINGS. BIRADS 2 BREAST DENSITY: b. There are scattered areas of fibroglandular density. BIRAD: 2 BENIGN FINDING(S) RECOMMENDATION: RECOMMENDATION: ROUTINE SCREENING Please continue yearly bilateral screening tomosynthesis in February 2018 COMMENT: The patient has been notified of the results by letter per SA requirements. Additional no tification policies are in place for contacting patient with suspicious or incomplete findings. Quality ID #[id number]: The [employer] recommends an annual screening mammogram for women aged 40 years or over. This facility utilizes a reminder system to ensure that all patients receive reminder letters, and/or direct phone calls for appointments. This includes reminders for routine scr eening mammograms, diagnostic mammograms, or other Breast Imaging Interventions when appropriate. Th is patient will be placed in the appropriate reminder system. The [employer] (ACR) has developed recommendations for screening MRI of the breast s in certain patient populations, to be used in conjunction with mammography. Breast MRI surveillanc e may be appropriate for women with more than 20% lifetime risk of developing breast cancer as deter mined by genetic testing, significant family history of the disease, or history of mantle radiation f or Hodgkins Disease. ACR Practice Guidelines 2008. DBT Technology DBT is a type of tomographic mammography. With conventional mammography, overlapping breast tissue ma y make lesions difficult to detect, even with good compression. DBT uses an x-ray tube that rotates a round the breast, taking images at different angles. These images are then combined to create thin sl ices of the breast that the radiologist can view as a 3D reconstruction. The Hologic unit can perform full-field digital mammograms (2D imaging); or DBT (3D imaging); or both, in a combination mode that quickly performs both the mammogram and the tomosynthesis scan while the breast is still compressed. PQRS 6045F: Fluoroscopic imaging is not utilized for breast tomosynthesis. TECHNICAL DOCUMENTATION: FINDING NUMBER: (1) ASSESSMENT: (1) JOB ID: [id number] [employer]- All Rights Reserved
== END ==
LOC: WI 13:25
PROVIDERS: ATTEND Internal Medicine
DX: Z12.31 Encounter for screening mammogram for malignant neoplasm of breast (principal)
CPT/HCPCS: 77063; G0202; 77067

== ENCOUNTER 2017-07-12 19:25 | Emergency (ER) | payer MEDICARE, OTHER ==
--- NOTE | 2017-07-12 20:24 | RADIOLOGY REPORT (SQ) ---
EXAM DESCRIPTION: WRIST LEFT 3 VIEWS COMPLETED DATE/TIME: 07/12/2017 8:14 pm REASON FOR STUDY: Pain and swelling. Denies injury COMPARISON: None. NUMBER OF VIEWS: Three views. TECHNIQUE: AP, lateral, and oblique radiographic images acquired of the left wrist. LIMITATIONS: None. FINDINGS: MINERALIZATION: Normal. BONES: No acute fracture or dislocation. No worrisome bone lesions. Normal alignment. No significant osteophytes. JOINTS: No erosions. No lynn-articular osteopenia. No chondrocalcinosis. SOFT TISSUES: No swelling. No calcifications. OTHER: No other significant finding. IMPRESSION: NEGATIVE STUDY OF THE LEFT WRIST. NO EXPLANATION FOR PAIN. TECHNICAL DOCUMENTATION: JOB ID: [id number] [employer]- All Rights Reserved
[2017-07-12] MEDS ORDERED: ONDANSETRON 4 MG TAB.RAPDIS PO ONE (20:44)
[2017-07-12] MEDS ORDERED: ASPIRIN 81 MG TABLET, CHEWABLE PO ONE (20:44)
[2017-07-12] MEDS ORDERED: OXYCODONE-ACETAMINOPHEN 5-325 MG TABLET PO ONE (20:44)
--- NOTE | 2017-07-12 20:48 | ER Document Report ---
ED General - General Chief Complaint: Wrist Pain Stated Complaint: WRIST PAIN AND SWELLING Time Seen by Provider: 07/12/17 20:31 Notes: Patient is a 67-year-old female comes emergency department for 2 complaints. First complaint is sharp pain in her left wrist with a swelling sensation. 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 She denies current chest pain, she denies shortness of breath. She states she was nauseated earlier but she thinks it was related to the pain in her wrist. Past medical history includes a diagnosis of Brugada syndrome for which she was referred to [place] and had a heart catheterization, she states she is supposed to follow-up in August and is supposed to get a pacemaker to her knowledge. She denies knowledge of stents, other past medical history is hypertension, hyperlipidemia , hypothyroidism. TRAVEL OUTSIDE OF THE [place] IN LAST 30 DAYS: No - Related Data Allergies/Adverse Reactions: Penicillins Allergy (Mild, Verified 12/10/15 05:43) rash Past Medical History - General Information source: Patient - Social History Smoking Status: Never Smoker Frequency of alcohol use: None Drug Abuse: None Lives with: Family Family History: Reviewed & Not Pertinent, CAD, Malignancy Patient has suicidal ideation: No Patient has homicidal ideation: No - Past Medical History Cardiac Medical History: Reports: Hx Hypercholesterolemia, Hx Hypertension Denies: Hx Coronary Artery Disease, Hx Heart Attack Pulmonary Medical History: Denies: Hx Asthma, Hx Bronchitis, Hx COPD, Hx Pneumonia, Hx Sleep Apnea Neurological Medical History: Denies: Hx Cerebrovascular Accident, Hx Seizures Endocrine Medical History: Reports: Hx Diabetes Mellitus Type 2, Hx Hypothyroidism. Denies: Hx Diabetes Mellitus Type 1, Hx Hyperthyroidism Renal/ Medical History: Denies: Hx Peritoneal Dialysis Musculoskeltal Medical History: Reports Hx Arthritis - hands Psychiatric Medical History: Denies: Hx Depression Infectious Medical History: Denies: Hx C-Diff, Hx MRSA Past Surgical History: Reports: Hx Abdominal Surgery - bladder, Hx Appendectomy , Hx Hysterectomy. Denies: Hx Cholecystectomy, Hx Pacemaker - Immunizations Immunizations up to date: Yes Hx Diphtheria, Pertussis, Tetanus Vaccination: Yes Review of Systems - Review of Systems Constitutional: No symptoms reported EENT: No symptoms reported Cardiovascular: See HPI Respiratory: No symptoms reported Gastrointestinal: No symptoms reported Genitourinary: No symptoms reported Female Genitourinary: No symptoms reported Musculoskeletal: See HPI Skin: No symptoms reported Hematologic/Lymphatic: No symptoms reported Neurological/Psychological: No symptoms reported Physical Exam - Vital signs Vitals: Temp Pulse Resp BP Pulse Ox 98.9 F 67 18 152/73 H 100 07/12/17 20:16 07/12/17 20:16 07/12/17 20:16 07/12/17 20:16 07/12/17 20:16 Interpretation: Normal - General General appearance: Appears well, Alert - HEENT Head: Normocephalic, Atraumatic Eyes: Normal Conjunctiva: Normal Eyelashes: Normal Pupils: PERRL Sinus: Normal Nasal: Normal Mouth/Lips: Normal Mucous membranes: Normal Pharynx: Normal Neck: Normal - Respiratory Respiratory status: No respiratory distress Chest status: Nontender Breath sounds: Normal Chest palpation: Normal - Cardiovascular Rhythm: Regular Heart sounds: Normal auscultation Murmur: No - Abdominal Inspection: Normal Distension: No distension Bowel sounds: Normal Tenderness: Nontender Organomegaly: No organomegaly - Back Back: Normal, Nontender - Extremities General upper extremity: Other - Pain over the right wrist over the dorsal aspect mainly, generalized pain, nonspecific, no snuffbox tenderness, pain with flexion of the wrist, no abnormal heat to the area, normal range of motion of the wrist, elbow, shoulder, normal distal neurovascular exam. Normal exam otherwise. General lower extremity: Normal inspection, Nontender, Normal color, Normal ROM , Normal temperature, Normal weight bearing. No: Thelma's sign - Neurological Neuro grossly intact: Yes Cognition: Normal Orientation: AAOx4 Evan Coma Scale Eye Opening: Spontaneous Evan Coma Scale Verbal: Oriented Evan Coma Scale Motor: Obeys Commands [place] Coma Scale Total: 15 Speech: Normal Motor strength normal: LUE, RUE, LLE, RLE Sensory: Normal - Psychological Associated symptoms: Normal affect, Normal mood - Skin Skin Temperature: Warm Skin Moisture: Dry Skin Color: Normal Course - Re-evaluation Re-evalutation: EKG shows sinus rhythm, does show ST elevations in V1 and V2 consistent with patient's history of Brugada syndrome. This is not significantly changed from prior. No significant changes compared to previous EKG. Chest x-ray, wrist x-ray unremarkable. CBC, chemistry generally unremarkable, CK is mildly elevated. 2 sets of negative troponins. Patient was given initial pain medication for her wrist, on examination she does not have any snuffbox tenderness, she retains range of motion, she has general pain over the left hand which is much worse with movement suggestive of tendinitis. No erythema, swelling, or severe pain noted. Normal capillary refill and sensation. Placed in a wrist splint for comfort. Discussed with Dr. White. Recommends consultation with [place] [facility] because of patient's history of Brugada syndrome and because she is being followed there. I spoke with Dr. Anguiano, aircraft refueler external relations director, he confirms that patient did have a cardiac catheterization with no concerning abnormalities in February of this year, he states that they had attempted to contact patient but they were unable to, I updated her phone number in her system, he states that based on her workup, presentation, and lack of dizziness or passing out he does not recommend anything at this time except for a close follow-up with cardiology. Patient is scheduled as she told me for a pacemaker/defibrillator in August. Discussed all details with patient. She has not had any chest pain recently, definitely not after she arrived to the emergency department. She states that she will be expecting their phone call and she will follow-up with them closely. She understands return precautions, she states that she will follow- up with orthopedics if her tendinitis does not resolve. Patient calling a ride to go home. - Vital Signs Vital signs: Temp Pulse Resp BP Pulse Ox 98.9 F 67 12 111/59 L 96 07/12/17 20:16 07/12/17 20:16 07/13/17 02:00 07/13/17 01:01 07/13/17 02:00 - Laboratory Result Diagrams: 07/12/17 21:45 07/12/17 21:45 Laboratory results interpreted by me: 07/12/17 07/12/17 21:45 21:45 Hgb 11.6 L Hct 34.3 L RDW 15.0 H Seg Neutrophils % 81.8 H Potassium 3.4 L Est GFR ( Amer) 57 L Est GFR (Non-Af Amer) 47 L Glucose 150 H Creatine Kinase 237 H Total Protein 8.8 H Procedures - Immobilization Right wrist Immobilizer type: Cock-up Performed by: RN Post-Proc Neuro Vasc Exam: Normal Alignment checked and good: Yes Discharge - Discharge Clinical Impression: Left wrist pain Chest pain Qualifiers: Chest pain type: unspecified Qualified Code(s): R07.9 - Chest pain, unspecified Condition: Stable Disposition: HOME, SELF-CARE Additional Instructions: Your workup did not show any concerning new findings. I called and spoke with aircraft refueler Dr. Anguiano at [place], cardiology will be contacting you by your phone in a close follow-up. Your wrist x-ray does not show fracture or other obvious abnormality. This appears to be tendinitis. Wear the brace, ice the wrist, rest the wrist. Follow-up with orthopedics referral if problems continue with this wrist. Return to the emergency department for any concerning symptoms including returned or worsening pain, passing out, or any other concerning symptoms. Referrals: PRADIP VÁSQUEZ MD [ACTIVE STAFF] - Follow up as needed
--- NOTE | 2017-07-12 21:30 | RADIOLOGY REPORT (SQ) ---
EXAM DESCRIPTION: CHEST SINGLE VIEW COMPLETED DATE/TIME: 07/12/2017 9:19 pm REASON FOR STUDY: chest pain COMPARISON: 01/04/2017. EXAM PARAMETERS: NUMBER OF VIEWS: One view. TECHNIQUE: Single frontal radiographic view of the chest acquired. RADIATION DOSE: NA LIMITATIONS: None. FINDINGS: LUNGS AND PLEURA: No opacities, masses or pneumothorax. No pleural effusion. MEDIASTINUM AND HILAR STRUCTURES: No masses. Contour normal. HEART AND VASCULAR STRUCTURES: Heart normal in size. Normal vasculature. BONES: No acute findings. Degenerative changes in the spine. HARDWARE: None in the chest. OTHER: No other significant finding. IMPRESSION: NO ACUTE RADIOGRAPHIC FINDING IN THE CHEST. TECHNICAL DOCUMENTATION: JOB ID: [id number] [employer]- All Rights Reserved
[2017-07-12 21:58] LABS: ABSOLUTE BASOPHILS # (AUTO) 0.1 10^3/uL (0.0-0.2); ABSOLUTE LYMPHOCYTES (AUTO) 1.3 10^3/uL (0.5-4.7); ABSOLUTE MONOCYTES (AUTO) 0.4 10^3/uL (0.1-1.4); BASOPHILS % (AUTO) 0.7 % (0-2); EOSINOPHILS % (AUTO) 0.4 % (0-6); HEMATOCRIT 34.3 % (36.0-47.0); HEMOGLOBIN 11.6 g/dL (12.0-15.5); HGB HCT DIFFERENCE 0.5; LYMPHOCYTES % (AUTO) 13.3 % (13-45); MEAN CORPUSCULAR HEMOGLOBIN 29.2 pg (27.0-33.4); MEAN CORPUSCULAR HGB CONC 33.8 g/dL (32.0-36.0); MEAN CORPUSCULAR VOLUME 86 fl (80-97); MONOCYTES % (AUTO) 3.8 % (3-13); RED BLOOD COUNT 3.97 10^6/uL (3.72-5.28); SEGMENTED NEUTROPHILS % (AUTO) 81.8 % (42-78); WHITE BLOOD COUNT 9.7 10^3/uL (4.0-10.5)
[2017-07-12 22:16] LABS: ALANINE AMINOTRANSFERASE 26 U/L (9-52); ALBUMIN 4.5 g/dL (3.5-5.0); ALKALINE PHOSPHATASE 113 U/L (38-126); ANION GAP 10 (5-19); ASPARTATE AMINO TRANSFERASE 35 U/L (14-36); BILIRUBIN,DIRECT 0.3 mg/dL (0.0-0.4); BILIRUBIN,TOTAL 0.6 mg/dL (0.2-1.3); BLOOD UREA NITROGEN 18 mg/dL (7-20); CARBON DIOXIDE 28 mmol/L (22-30); CHLORIDE 102 mmol/L (98-107); CREATINE KINASE 237 U/L (30-135); CREATININE RESULT 1.15 mg/dL (0.52-1.25); GLUCOSE 150 mg/dL (75-110); POTASSIUM 3.4 mmol/L (3.6-5.0); SODIUM 140.2 mmol/L (137-145); TOTAL PROTEIN 8.8 g/dL (6.3-8.2)
[2017-07-12 22:27] LABS: CREATINE KINASE MB 0.93 ng/mL (<4.55)
[2017-07-12 22:28] LABS: TROPONIN I < 0.012 ng/mL
[2017-07-13 02:43] VITALS: BP 111/59
--- NOTE | 2017-07-13 08:00 | EKG REPORT ---
SEVERITY:- ABNORMAL ECG - SINUS RHYTHM BORDERLINE T ABNORMALITIES, ANT-LAT LEADS MINIMAL ST ELEVATION, ANTERIOR LEADS, NO CHANGE. : Confirmed by: Thiago Marlow MD 13-Jul-2017 08:00:12
== END 2017-07-13 02:43 | disposition home or self-care (01) ==
LOC: ER 19:25
DX: M25.532 Pain in left wrist (principal); M79.642 Pain in left hand; R07.9 Chest pain, unspecified; R74.8 Abnormal levels of other serum enzymes; I49.8 Other specified cardiac arrhythmias; I10 Essential (primary) hypertension; Z88.0 Allergy status to penicillin
CPT/HCPCS: 93005; 99284; 36415; 82553; 82550; 85025; 80053; 84484; 71010; 73110; 93010; L3908; A9270 ×3; S0119

== ENCOUNTER → 2017-09-15 | Outpatient (CLI) | payer MEDICARE, OTHER ==
--- NOTE | 2017-09-18 15:58 | RADIOLOGY REPORT (SQ) ---
EXAM DESCRIPTION: MRI LT UPPER JOINT WITHOUT COMPLETED DATE/TIME: 09/15/2017 5:00 pm REASON FOR STUDY: OTHER SYNOVITIS AND TENOSYNOVITIS, OTHER M65.88 OTHER SYNOVITIS AND TENOSYNOVITIS , OTHER SITE COMPARISON: None. TECHNIQUE: Left wrist images acquired and stored on PACS. Multiplanar images include fat sensitive sequences as T1, fluid sensitive sequences as FST2/STIR, cartilage sensitive sequences as FSPD, gradi ent echo sequences. LIMITATIONS: None. FINDINGS: BONE MARROW: Mild marrow edema in the lunate dorsal surface. CARPAL ALIGNMENT AND ARTICULATION: Normal congruity of sigmoid notch at level of distal RUJ without p ositive or negative ulnar variance. Normal capitolunate angle. No widening of scapholunate articulati on. EFFUSION: None noted. No loose bodies. SCAPHOLUNATE LIGAMENT: Intact without tear. LUNATE-TRIQUETRAL LIGAMENT: Intact without tear. TFC COMPLEX: Radial and ulnar attachments normal. Meniscus intact. Extensor carpi ulnaris tendon norm al without tendinopathy. EXTRINSIC LIGAMENTS AND DISTAL RADIO-ULNAR JOINT: Dorsal and volar distal RUJ intact without subluxat ion of the distal ulna. 1-6 EXTENSOR COMPARTMENTS: Minimal fluid in compartment 4 indicating tendinopathy. CARPAL TUNNEL AND MEDIAN NERVE: Normal volume and morphology of the carpal tunnel proximally at the l evel of the radiocarpal joint and distally at the hook of the hamate. No thickening or signal alterat ion of the median nerve. OTHER: No other significant finding. IMPRESSION: Tenosynovitis of the tendons in dorsal compartment 4. Reactive marrow edema of the arcenio cent lunate. TECHNICAL DOCUMENTATION: JOB ID: [id number] [employer]- All Rights Reserved Reading location - IP/workstation name: [email or web address]
== END ==
LOC: RAD 15:19
PROVIDERS: ATTEND Family Medicine
DX: M65.88 Other synovitis and tenosynovitis, other site (principal)

== ENCOUNTER 2017-10-15 06:44 | Emergency (ER) | payer MEDICARE, BC, OTHER ==
[2017-10-15 07:13] LABS: INTERNATIONAL RATION (INR) 0.85; PROTHROMBIN TIME 12.3 SEC (11.4-15.4)
[2017-10-15 07:15] LABS: ABSOLUTE BASOPHILS # (AUTO) 0.1 10^3/uL (0.0-0.2); ABSOLUTE EOSINOPHILS # (AUTO) 0.1 10^3/uL (0.0-0.6); ABSOLUTE LYMPHOCYTES (AUTO) 2.8 10^3/uL (0.5-4.7); ABSOLUTE MONOCYTES (AUTO) 0.8 10^3/uL (0.1-1.4); ABSOLUTE NEUT (AUTO) 6.5 10^3/uL (1.7-8.2); BASOPHILS % (AUTO) 0.8 % (0-2); EOSINOPHILS % (AUTO) 0.9 % (0-6); HEMATOCRIT 36.8 % (36.0-47.0); LYMPHOCYTES % (AUTO) 27.3 % (13-45); MEAN CORPUSCULAR HEMOGLOBIN 28.6 pg (27.0-33.4); MEAN CORPUSCULAR HGB CONC 32.7 g/dL (32.0-36.0); MEAN CORPUSCULAR VOLUME 87 fl (80-97); MONOCYTES % (AUTO) 7.6 % (3-13); PLATELET COUNT 159 10^3/uL (150-450); RED BLOOD COUNT 4.21 10^6/uL (3.72-5.28); RED CELL DISTRIBUTION WIDTH 15.7 % (11.5-14.0); SEGMENTED NEUTROPHILS % (AUTO) 63.4 % (42-78); TOTAL CELLS COUNTED % (AUTO) 100 %; WHITE BLOOD COUNT 10.3 10^3/uL (4.0-10.5)
[2017-10-15 07:16] LABS: D-DIMER 0.31 ug/mL (0.00-0.50)
[2017-10-15 07:20] LABS: ALANINE AMINOTRANSFERASE 43 U/L (9-52); ALKALINE PHOSPHATASE 155 U/L (38-126); ANION GAP 7 (5-19); ASPARTATE AMINO TRANSFERASE 18 U/L (14-36); BILIRUBIN,DIRECT 0.4 mg/dL (0.0-0.4); BILIRUBIN,TOTAL 0.4 mg/dL (0.2-1.3); BLOOD UREA NITROGEN 28 mg/dL (7-20); CARBON DIOXIDE 28 mmol/L (22-30); CHLORIDE 107 mmol/L (98-107); CREATINE KINASE 35 U/L (30-135); GLUCOSE 119 mg/dL (75-110); LIPASE 48.6 U/L (23-300); SODIUM 141.7 mmol/L (137-145); TOTAL PROTEIN 6.8 g/dL (6.3-8.2)
[2017-10-15 07:32] LABS: CREATINE KINASE MB 0.55 ng/mL (<4.55); TROPONIN I < 0.012 ng/mL
[2017-10-15] MEDS ORDERED: NITROGLYCERIN 2% OINTMENT 1 GM PACKET TP ONE (07:40)
--- NOTE | 2017-10-15 07:40 | ER Document Report ---
ED General - General Chief Complaint: Chest Pain Stated Complaint: CHEST PAIN Time Seen by Provider: 10/15/17 06:48 TRAVEL OUTSIDE OF THE [place] IN LAST 30 DAYS: No - HPI Patient complains to provider of: Chest pain Notes: Patient woke up this morning with left-sided chest pain going to her left shoulder blade. Patient states initially started off as a daily and continue to get worse as she was trying to prepare several work therefore called EMS. Patient was given nitro with resolution of her pain. Patient otherwise states currently now she only has a headache and slight nausea. Patient denies any recent trauma denies fevers chills nausea vomiting diarrhea. Has a history of hypertension diabetes. Patient also has been diagnosed with Brugada currently being followed by [place]. Patient does not have an AICD placement no history of syncope in the past. Patient with admission last year in December for chest pain at that time had a negative stress test. - Related Data Allergies/Adverse Reactions: Penicillins Allergy (Mild, Verified 12/10/15 05:43) rash Past Medical History - Social History Smoking Status: Never Smoker Family History: Reviewed & Not Pertinent, CAD, Malignancy Patient has suicidal ideation: No Patient has homicidal ideation: No - Past Medical History Cardiac Medical History: Reports: Hx Atrial Fibrillation, Hx Hypercholesterolemia, Hx Hypertension Denies: Hx Coronary Artery Disease, Hx Heart Attack Pulmonary Medical History: Denies: Hx Asthma, Hx Bronchitis, Hx COPD, Hx Pneumonia, Hx Sleep Apnea Neurological Medical History: Denies: Hx Cerebrovascular Accident, Hx Seizures Endocrine Medical History: Reports: Hx Diabetes Mellitus Type 2, Hx Hypothyroidism. Denies: Hx Diabetes Mellitus Type 1, Hx Hyperthyroidism Renal/ Medical History: Denies: Hx Peritoneal Dialysis Musculoskeltal Medical History: Reports Hx Arthritis - hands Psychiatric Medical History: Denies: Hx Depression Infectious Medical History: Denies: Hx C-Diff, Hx MRSA Past Surgical History: Reports: Hx Abdominal Surgery - bladder, Hx Appendectomy , Hx Hysterectomy. Denies: Hx Cholecystectomy, Hx Pacemaker - Immunizations Immunizations up to date: Yes Hx Diphtheria, Pertussis, Tetanus Vaccination: Yes Review of Systems - Review of Systems Constitutional: No symptoms reported EENT: No symptoms reported Cardiovascular: Chest pain Respiratory: No symptoms reported Gastrointestinal: No symptoms reported Genitourinary: No symptoms reported Female Genitourinary: No symptoms reported Musculoskeletal: No symptoms reported Skin: No symptoms reported Hematologic/Lymphatic: No symptoms reported Neurological/Psychological: No symptoms reported -: Yes All other systems reviewed and negative Physical Exam - Vital signs Vitals: Resp BP Pulse Ox 16 134/77 H 98 10/15/17 06:53 10/15/17 06:53 10/15/17 06:53 Interpretation: Normal - General General appearance: Appears well, Alert - HEENT Head: Normocephalic, Atraumatic Eyes: Normal Pupils: PERRL - Respiratory Respiratory status: No respiratory distress Chest status: Tender - Tenderness palpation of the anterior chest wall Breath sounds: Normal Chest palpation: Normal - Cardiovascular Rhythm: Regular Heart sounds: Normal auscultation Murmur: No - Abdominal Inspection: Normal Distension: No distension Bowel sounds: Normal Tenderness: Nontender Organomegaly: No organomegaly - Back Back: Normal, Nontender - Extremities General upper extremity: Normal inspection, Nontender, Normal color, Normal ROM , Normal temperature General lower extremity: Normal inspection, Nontender, Normal color, Normal ROM , Normal temperature, Normal weight bearing. No: Thelma's sign - Neurological Neuro grossly intact: Yes Cognition: Normal Orientation: AAOx4 Evan Coma Scale Eye Opening: Spontaneous [place] Coma Scale Verbal: Oriented [place] Coma Scale Motor: Obeys Commands [place] Coma Scale Total: 15 Speech: Normal Motor strength normal: LUE, RUE, LLE, RLE Sensory: Normal - Psychological Associated symptoms: Normal affect, Normal mood - Skin Skin Temperature: Warm Skin Moisture: Dry Skin Color: Normal Course - Re-evaluation Re-evalutation: 10/15/17 07:36 No acute ischemic changes on EKG. Laboratory studies are otherwise negative. 10/15/17 10:15 Pain was not relieved with any Nitropaste here this was removed and given morphine patient is better not this time resting. States does have intermittent sharp shooting episodes. Will call her [place] sales architect Dr. Jimenez once we obtain the second troponin. 10/15/17 12:18 Initially discussed with hospitalist think patient would not require admission, however Dr Ivett ba patient with family member family member who works with the hospital and the hospitalist did approach me states concern for underlying also gallbladder disease that are local surgical team has been evaluating the patient however they will not perform any elective surgery until the patient is medically cleared by sales architect at [place]. Hospital also states think the patient will be better served tertiary care facility is that we do not have the ability to workup or manage someone with Brugada did not have the ability to place pacemakers or AICDs. Patient again had an episode of chest pain repeat EKG showing no acute changes. Chest pain was relieved again by 2 mg of morphine. Because of continued chest pain and lack of support to manage patient's underlying Brugada syndrome if the need arises I did contact [place] transfer team discussed case with Dr. Coronel who accepted patient in transfer attend would be Dr. Godfrey 10/15/17 12:59 10/15/17 15:45 Stable for transport at this time. - Vital Signs Vital signs: Temp Pulse Resp BP Pulse Ox 98.7 F 15 148/79 H 96 10/15/17 07:01 10/15/17 12:27 10/15/17 12:27 10/15/17 12:27 - Laboratory Result Diagrams: 10/15/17 06:50 10/15/17 06:50 Laboratory results interpreted by me: 10/15/17 10/15/17 06:50 06:50 RDW 15.7 H BUN 28 H Glucose 119 H Alkaline Phosphatase 155 H - EKG Interpretation by Me Additional EKG results interpreted by me: 10/15/17 13:01 EKG does show a notch within V2 consistent with a Brugada type II. Discharge - Discharge Clinical Impression: Diabetes mellitus type 2 in obese, Brugada syndrome HLD (hyperlipidemia) Qualifiers: Hyperlipidemia type: unspecified Qualified Code(s): E78.5 - Hyperlipidemia, unspecified Hypothyroid Qualifiers: Hypothyroidism type: unspecified Qualified Code(s): E03.9 - Hypothyroidism, unspecified HTN (hypertension) Qualifiers: Hypertension type: essential hypertension Qualified Code(s): I10 - Essential ( primary) hypertension Chest pain Qualifiers: Chest pain type: unspecified Qualified Code(s): R07.9 - Chest pain, unspecified Condition: Good Disposition: [place] Referrals: CLEMENTINA DANIELS MD [Primary Care Provider] - Follow up as needed
--- NOTE | 2017-10-15 08:14 | RADIOLOGY REPORT (SQ) ---
EXAM DESCRIPTION: CHEST SINGLE VIEW COMPLETED DATE/TIME: 10/15/2017 7:15 am REASON FOR STUDY: sob/cp COMPARISON: AP chest 07/12/2017, 01/04/2017, 08/12/2014 CT chest 02/05/2013 EXAM PARAMETERS: NUMBER OF VIEWS: One view. TECHNIQUE: Single frontal radiographic view of the chest acquired. RADIATION DOSE: NA LIMITATIONS: None. FINDINGS: LUNGS AND PLEURA: No opacities, masses or pneumothorax. No pleural effusion. MEDIASTINUM AND HILAR STRUCTURES: No masses. Contour normal. HEART AND VASCULAR STRUCTURES: Heart normal in size. Normal vasculature. BONES: No acute findings. HARDWARE: None in the chest. OTHER: No other significant finding. IMPRESSION: NO ACUTE RADIOGRAPHIC FINDING IN THE CHEST. TECHNICAL DOCUMENTATION: JOB ID: [id number] [employer]- All Rights Reserved Reading location - IP/workstation name: [email or web address]
[2017-10-15] MEDS ORDERED: MORPHINE SULFATE 10 MG/ML INJ IV ONE ×2 (08:54→11:09)
[2017-10-15] MEDS ORDERED: ONDANSETRON HCL INJ/PF 4 MG/2 ML SDV IV ONE (08:54)
--- NOTE | 2017-10-15 09:12 | EKG REPORT ---
SEVERITY:- NORMAL ECG - SINUS RHYTHM : Confirmed by: Sadie Goldstein 15-Oct-2017 09:10:56
[2017-10-15] MEDS ORDERED: LIDOCAINE 2% VISCOUS SOLN 20 ML UDCUP PO ONE (11:11)
[2017-10-15] MEDS ORDERED: METOCLOPRAMIDE HCL ORAL SOLN 10 MG/10 ML UDCUP PO ONE (11:11)
[2017-10-15] MEDS ORDERED: MAG HYDROX/AL HYDROX/SIMETH SUSP 30 ML UDCUP PO ONE (11:11)
[2017-10-15] MEDS ORDERED: ENOXAPARIN SODIUM INJ 100 MG/1 ML DISP.SYRIN SUBCUT SCH (11:45)
[2017-10-15] MEDS ORDERED: ENOXAPARIN SODIUM INJ 100 MG/1 ML DISP.SYRIN SUBCUT ONE (12:45)
[2017-10-15] MEDS ORDERED: MORPHINE SULFATE 10 MG/ML INJ IV PRN (14:01)
--- NOTE | 2017-10-15 14:04 | PDOC CONSULTATION ---
Consultation Consult Date: 10/15/17 Attending physician:: SANGEETHA PIPER Consult reason:: Evaluation of Chest Pain History of Present Illness Admission Date/PCP: 10/15/2017 CLEMENTINA DANIELS MD Patient complains of: Chest Pain History of Present Illness: MERCEDES MODI is a 67 year old female presented with complaint of chest pain that began at 400am. Pt states that she has been followed at [facility] due to Brugada Syndrome. Patient and daughter both state that the electronic system engineer has been debating whether or not to place ICD. Patient's daughter reports that her mother has been complaining of chest discomfort off and on. Daughter also states that she has been evaluated by Dr. Mcguire who states that patient most likely will need to have her gallbladder removed but due to pt having Brugada Syndrome he does not feel comfortable doing a procedure on patient here. Patient states that her chest pain is in the center of her chest and started at rest. Patient and family also stated that they would prefer to be at [facility] instead of being here due to our hospital not having the appropriate services to care for her. Family stated that they feel that they need to have an electrophysiology electronic system engineer present to help answer the question of her chest pain and whether she needs to have ICD placed. Past Medical History Cardiac Medical History: Reports: Atrial Fibrillation, Hyperlipidema, Hypertension Denies: Coronary Artery Disease, Myocardial Infarction Pulmonary Medical History: Denies: Asthma, Bronchitis, Chronic Obstructive Pulmonary Disease (COPD), Pneumonia, Sleep Apnea Neurological Medical History: Denies: Seizures Endocrine Medical History: Reports: Diabetes Mellitus Type 2, Hypothyroidism Denies: Diabetes Mellitus Type 1, Hyperthyroidism Musculoskeltal Medical History: Reports: Arthritis - hands Psychiatric Medical History: Denies: Depression Hematology: Reports: Anemia Infectious Medical History: Denies: Clostridium Difficile, Methicillin-Resistant Staph Aureus Past Surgical History Past Surgical History: Reports: Appendectomy, Hysterectomy Denies: Cholecystectomy, Pacemaker Social History Smoking Status: Never Smoker Frequency of Alcohol Use: None Hx Recreational Drug Use: No Drugs: None Hx Prescription Drug Abuse: No - Advance Directive Resuscitation Status: Full Code Family History Family History: Reviewed & Not Pertinent, CAD, Malignancy Parental Family History Reviewed: Yes Children Family History Reviewed: Yes Sibling(s) Family History Reviewed.: Yes Medication/Allergy Home Medications: Amlodipine Besylate [Norvasc 10 mg Tablet] 10 mg PO DAILY 01/05/17 Aspirin [Aspirin EC] 81 mg PO DAILY 01/05/17 Atorvastatin Calcium [Lipitor 20 mg Tablet] 20 mg PO DAILY 01/05/17 Diclofenac Sodium [Voltaren] 1 applic TP DAILY 01/05/17 Ergocalciferol (Vitamin D2) [Vitamin D2] 50,000 unit PO SA@1000 01/05/17 Ezetimibe [Zetia 10 mg Tablet] 10 mg PO QHS 01/05/17 Glimepiride [Amaryl 1 mg Tablet] 1 mg PO BID 01/05/17 Hydrochlorothiazide 25 mg PO DAILY 01/05/17 Levothyroxine Sodium [Synthroid 0.1 mg Tablet] 0.1 mg PO DAILY 01/05/17 Loratadine [Claritin 10 mg Tablet] 10 mg PO DAILYP PRN 01/05/17 Potassium Chloride [Klor-Con 10 Meq Tablet.sa] 10 meq PO DAILY 01/05/17 Sitagliptin Phosphate [Januvia] 100 mg PO DAILY 01/05/17 Valsartan [Diovan 160 mg Tablet] 160 mg PO DAILY 01/05/17 Cyclobenzaprine HCl [Flexeril 10 mg Tablet] 5 mg PO Q8 #30 tablet 01/06/17 Methylprednisolone [Medrol Dosepack (4 mg/Tab) 21 Tab/Dosepak] 4 mg PO ASDIR PRN #21 tab.ds.pk 01/06/17 Oxycodone HCl [Oxy-Ir 5 mg Tablet] 5 mg PO Q6HP PRN #30 tablet 01/06/17 Tramadol HCl [Ultram] 50 mg PO Q8 PRN #12 tablet 02/01/17 Allergies/Adverse Reactions: Penicillins Allergy (Mild, Verified 12/10/15 05:43) rash Review of Systems Constitutional: ABSENT: chills, fever(s), headache(s), weight gain, weight loss Eyes: ABSENT: visual disturbances Ears: ABSENT: hearing changes Cardiovascular: PRESENT: chest pain, dyspnea on exertion Respiratory: PRESENT: dyspnea Gastrointestinal: ABSENT: abdominal pain, constipation, diarrhea, hematemesis, hematochezia, nausea, vomiting Genitourinary: ABSENT: dysuria, hematuria Musculoskeletal: ABSENT: joint swelling Integumentary: ABSENT: rash, wounds Neurological: ABSENT: abnormal gait, abnormal speech, confusion, dizziness, focal weakness, syncope Psychiatric: ABSENT: anxiety, depression, homidical ideation, suicidal ideation Endocrine: ABSENT: cold intolerance, heat intolerance, polydipsia, polyuria Hematologic/Lymphatic: ABSENT: easy bleeding, easy bruising Physical Exam Vital Signs: Temp Pulse Resp BP Pulse Ox 98.7 F 15 148/79 H 96 10/15/17 07:01 10/15/17 12:27 10/15/17 12:27 10/15/17 12:27 Intake & Output 10/14/17 10/15/17 10/16/17 06:59 06:59 06:59 Weight 91.9 kg General appearance: PRESENT: mild distress, well-developed, well-nourished Head exam: PRESENT: atraumatic, normocephalic Eye exam: PRESENT: conjunctiva pink, EOMI. ABSENT: scleral icterus Ear exam: PRESENT: normal external ear exam Mouth exam: PRESENT: moist, tongue midline Neck exam: ABSENT: carotid bruit, JVD, lymphadenopathy, thyromegaly Respiratory exam: PRESENT: clear to auscultation lore. ABSENT: rales, rhonchi, wheezes Cardiovascular exam: PRESENT: RRR. ABSENT: diastolic murmur, rubs, systolic murmur Pulses: PRESENT: normal dorsalis pedis pul Vascular exam: PRESENT: normal capillary refill GI/Abdominal exam: PRESENT: normal bowel sounds, soft. ABSENT: distended, guarding, mass, organolmegaly, rebound, tenderness Rectal exam: PRESENT: deferred Extremities exam: PRESENT: full ROM. ABSENT: calf tenderness, clubbing, pedal edema Neurological exam: PRESENT: alert, awake, oriented to person, oriented to place , oriented to time Skin exam: PRESENT: dry, intact, warm. ABSENT: cyanosis, rash Results Laboratory Results: 10/15/17 06:50 10/15/17 06:50 10/15/17 10/15/17 06:50 06:50 WBC 10.3 RBC 4.21 Hgb 12.0 Hct 36.8 MCV 87 MCH 28.6 MCHC 32.7 RDW 15.7 H Plt Count 159 Seg Neutrophils % 63.4 Lymphocytes % 27.3 Monocytes % 7.6 Eosinophils % 0.9 Basophils % 0.8 Absolute Neutrophils 6.5 Absolute Lymphocytes 2.8 Absolute Monocytes 0.8 Absolute Eosinophils 0.1 Absolute Basophils 0.1 Sodium 141.7 Potassium 4.0 Chloride 107 Carbon Dioxide 28 Anion Gap 7 BUN 28 H Creatinine 0.92 Est GFR ( Amer) > 60 Est GFR (Non-Af Amer) > 60 Glucose 119 H Calcium 9.0 Magnesium 2.1 Total Bilirubin 0.4 AST 18 ALT 43 Alkaline Phosphatase 155 H Total Protein 6.8 Albumin 4.0 Lipase 48.6 10/15/17 10/15/17 10/15/17 06:50 06:50 10:53 Creatine Kinase 35 CK-MB (CK-2) 0.55 Troponin I < 0.012 < 0.012 Impressions: Chest X-Ray 10/15/17 06:58 IMPRESSION: NO ACUTE RADIOGRAPHIC FINDING IN THE CHEST. Assessment & Plan - Diagnosis (1) Chest pain Is this a current diagnosis for this admission?: Yes Plan: EKG normal and troponins negative. Family requesting to be transferred to [facility] or Tertiary Facility where pt can have full evaluation. (2) Brugada syndrome Is this a current diagnosis for this admission?: Yes Plan: Family states the patient has had ongoing chest discomfort. Family states that her physician at [facility] has been on the fence about whether to place an ICD. Patient and daughter both state that they would like to be at [facility] so that she can have a thorough evaluation and have all services available that she may need. Spoke with Dr. Piper who states that he has an accepting facility i.e. [facility] willing to take patient. Dr. Piper he stated that Dr. Jocy Dyson was inquiring why patient is not being admitted to our facility. Family has stated that they do not want to be admitted here due to not having full Cardiac services.
--- NOTE | 2017-10-15 15:17 | EKG REPORT ---
SEVERITY:- NORMAL ECG - SINUS RHYTHM : Confirmed by: Sadie Goldstein 15-Oct-2017 15:16:20
[2017-10-15 16:50] VITALS: BP 158/77
== END 2017-10-15 16:08 | disposition short-term general hospital (02) ==
LOC: ER 06:44
DX: R07.9 Chest pain, unspecified (principal); I49.8 Other specified cardiac arrhythmias; I10 Essential (primary) hypertension; E11.9 Type 2 diabetes mellitus without complications; R51 Headache; E87.5 Hyperkalemia; E03.9 Hypothyroidism, unspecified; Z88.0 Allergy status to penicillin
CPT/HCPCS: 93005; 96376; 99285; 96372; 96374; 96375; 36415; 82553; 82550; 83690; 83735; 85025; 85610; 80053; 84484; 85379; 71045; 93010; A9270 ×2; J3490; J2270; J2405; J1650

== ENCOUNTER 2017-11-17 06:23 | Observation (INO) | payer MEDICARE, BC, OTHER ==
[2017-11-10 11:30] LABS: HEMATOCRIT 35.4 % (36.0-47.0); HEMOGLOBIN 11.8 g/dL (12.0-15.5); MEAN CORPUSCULAR HEMOGLOBIN 29.1 pg (27.0-33.4); MEAN CORPUSCULAR HGB CONC 33.3 g/dL (32.0-36.0); MEAN CORPUSCULAR VOLUME 87 fl (80-97); PLATELET COUNT 184 10^3/uL (150-450); RED BLOOD COUNT 4.06 10^6/uL (3.72-5.28); RED CELL DISTRIBUTION WIDTH 15.8 % (11.5-14.0); WHITE BLOOD COUNT 6.3 10^3/uL (4.0-10.5)
[2017-11-10 11:49] LABS: ALANINE AMINOTRANSFERASE 30 U/L (9-52); ALBUMIN 4.3 g/dL (3.5-5.0); ALKALINE PHOSPHATASE 152 U/L (38-126); AMYLASE 53 U/L (30-110); ANION GAP 12 (5-19); ASPARTATE AMINO TRANSFERASE 20 U/L (14-36); BILIRUBIN,DIRECT 0.3 mg/dL (0.0-0.4); BILIRUBIN,TOTAL 0.5 mg/dL (0.2-1.3); BLOOD UREA NITROGEN 14 mg/dL (7-20); CALCIUM 10.2 mg/dL (8.4-10.2); CARBON DIOXIDE 32 mmol/L (22-30); CHLORIDE 102 mmol/L (98-107); GLUCOSE 200 mg/dL (75-110); POTASSIUM 3.7 mmol/L (3.6-5.0); SODIUM 145.7 mmol/L (137-145); TOTAL PROTEIN 7.5 g/dL (6.3-8.2)
--- NOTE | 2017-11-10 23:01 | EKG REPORT ---
SEVERITY:- NORMAL ECG - SINUS RHYTHM : Confirmed by: Sadie Goldstein 10-Nov-2017 23:00:35
[~2017-11-17 06:23] MED LIST: ACETAMINOPHEN 325 MG TABLET PO PRN; CIPROFLOXACIN 400 MG/D5W RTU 400 MG/200 ML RTUPB IV PRN; RINGERS SOLUTION,LACTATED 1,000 ML IV PRN
[2017-11-17] MEDS ORDERED: LIDOCAINE 2% INJ-PF (20 MG/ML) 10 ML AMPUL ONE (07:57)
[2017-11-17] MEDS ORDERED: FENTANYL CITRATE INJ/PF 100 MCG/2 ML AMPUL ONE ×3 (07:58→11:34)
[2017-11-17] MEDS ORDERED: KETOROLAC TROMETHAMINE 60 MG/2 ML SDV ONE (07:58)
[2017-11-17] MEDS ORDERED: EPHEDRINE SULFATE INJ 50 MG/1 ML AMPULE ONE (07:58)
[2017-11-17] MEDS ORDERED: DEXAMETHASONE SOD PHOSPHATE INJ 4 MG/1 ML VIAL ONE (07:58)
[2017-11-17] MEDS ORDERED: MIDAZOLAM 2 MG/2 ML INJ ONE (07:58)
[2017-11-17] MEDS ORDERED: ONDANSETRON HCL INJ/PF 4 MG/2 ML SDV ONE (07:58)
[2017-11-17] MEDS ORDERED: PROPOFOL INJ 200 MG/20 ML VIAL IV ONE (07:59)
[2017-11-17] MEDS ORDERED: ACETAMINOPHEN 100 ML IV ONE (07:59)
[2017-11-17] MEDS ORDERED: BUPIVACAINE HCL 0.25 % INJ/PF (2.5 MG/1 ML) 30 ML VIAL ONE ×2 (08:39→09:27)
[2017-11-17] MEDS ORDERED: DIPHENHYDRAMINE HCL 50 MG/ML VIAL IV PRN (10:16)
[2017-11-17] MEDS ORDERED: MORPHINE SULFATE 10 MG/ML INJ IV PRN (10:16)
[2017-11-17] MEDS ORDERED: ONDANSETRON HCL INJ/PF 4 MG/2 ML SDV IV PRN (10:16)
[2017-11-17] MEDS ORDERED: PROMETHAZINE HCL INJ 25 MG/1 ML VIAL IV PRN ×2 (10:16)
[2017-11-17] MEDS ORDERED: OXYCODONE-ACETAMINOPHEN 5-325 MG TABLET PO PRN ×2 (10:16)
[2017-11-17] MEDS ORDERED: MEPERIDINE HCL/PF INJ 25 MG/1 ML DISP.SYRIN IV PRN (10:16)
[2017-11-17] MEDS ORDERED: FENTANYL CITRATE INJ/PF 100 MCG/2 ML AMPUL IV PRN ×3 (10:16)
--- NOTE | 2017-11-17 11:29 | Operative Report ---
Operative Report DATE OF SURGERY: 11/17/17 PREOPERATIVE DIAGNOSIS: 1. Chronic cholecystitis with cholelithiasis. 2. Previous abdominal surgery POSTOPERATIVE DIAGNOSIS: Same with extensive intra-abdominal adhesions OPERATION: 1. Laparoscopic conversion to open cholecystectomy. 2. Extensive right upper quadrant lysis of adhesions. 3. Placement of subhepatic drain SURGEON: JC RINALDI ANESTHESIA: GA TISSUE REMOVED OR ALTERED: 1 gallbladder in 2 components COMPLICATIONS: None ESTIMATED BLOOD LOSS: Scant INTRAOPERATIVE FINDINGS: See below PROCEDURE: The patient was taken to the preop holding area the main operating room where general anesthesia was induced uneventfully. The abdomen was exposed, prepped and draped in sterile fashion with instrumentation set up for laparoscopic possible open cholecystectomy. Surgical plan surgical timeout were conducted. The abdominal wall findings are significant for a line scar with diastases above the umbilicus. Therefore we approach to the peritoneal cavity through a right upper quadrant stab wound made with a knife, the Veress needle inserted the peritoneal cavity. Pneumoperitoneum developed easily. The Veress needle was removed and a 5 mm port was inserted. We immediately identified dense adhesions in a near complete circumferential fashion. I was able to visualize the liver adjacent to the port, and some free base lateral to my initial port so I placed a second port in the far right subcostal position. I switched positions in relation to the patient, and attempted to perform laparoscopic adhesio lysis. Fortunately there multiple loops of small bowel and colon directly in front of the scope and laparoscopic instrument. I looked carefully for an opening to proceed with adhesio lysis but I felt confident that this was going to be impossible. Therefore after approximately 15 minutes of exploration laparoscopically, we elected to convert to an open procedure. Was set up for open cholecystectomy. The patient remained hemodynamically stable. Skin was anesthetized with quarter percent Marcaine, and a subcostal incision was made approximately an 8 cm in length, operating the first subcostal port site incision. Subcutaneous tissue, anterior and posterior layers of the rectus sheath divided with electrocautery. As expected, we immediately once getting the peritoneum opened encountered extensive adhesions. These required careful sharp and electrocautery dissection again working in a circumferential fashion. The 2 loops of small bowel adhesions to the lateral to the falciform complex and the scissors were wire to sharply dissected these loops off of the terminal wall. It was no evidence of enterotomy. Eventually we got enough exposures such that we can get the Bookwalter retractor system set up, and exposure to the right upper quadrant. The gallbladder was enlarged but not distended. It was Biobonded to the anterior surface of the right lobe of the liver. With adequate exposure, we were able to exposed the inferior surface of the gallbladder. Adhesions were taken down bluntly between the gallbladder and the gastroduodenal read. Jocy clamps were placed on the gallbladder, and it was taken off of the inferior surface of the liver using electrocautery. We got all the way down to the neck of the gallbladder with excellent visualization. At this point the gallbladder suspended solely from the cystic artery and cystic duct. The cystic artery was clipped twice proximally once distally divided with scissors. The gallbladder was mutated after clamping the cystic duct proximally and distally. Actually, just prior to this maneuver, I amputated the gallbladder approximately two th[address] the way towards its neck so as to facilitate the final one third dissection The cystic duct stump was secured with both a clip and a 3-0 PDS suture. We irrigated the limited upper quadrant tissue carefully. I checked my lateral port site to ensure no evidence of visceral injury and none. We did place a drain through that port site secured to the skin with 2-0 Prolene suture. The previously released small bowel loops were carefully inspected for injury and there was none. Continue counts were correct. We felt the operation was complete. The abdominal wall was closed in 2 layers with multiple #1 PDS sutures. Skin closed with christiano. Additional quarter percent Marcaine was injected in the subcutaneous tissues. Her graft Patient tolerated procedure well, drain attached to bulb suction, patient extubated and taken to recovery in stable condition.
[2017-11-17] MEDS ORDERED: KETOROLAC TROMETHAMINE INJ/PF 30 MG/1 ML SDV IV PRN ×2 (11:34→13:02)
[2017-11-17] MEDS ORDERED: MORPHINE SULFATE 10 MG/ML INJ ONE (12:31)
[2017-11-17] MEDS: ACETAMINOPHEN INJ/PF 1000 MG/100 ML SDV IV SCH ×2 (12:37→17:08)
[2017-11-17] MEDS ORDERED: MORPHINE SULFATE 10 MG/ML INJ IV ONE (13:30)
[2017-11-17] MEDS ORDERED: SUCCINYLCHOLINE CHLORIDE INJ 200 MG/10 ML VIAL ONE (15:04)
[2017-11-17] MEDS ORDERED: PHENYLEPHRINE HCL INJ/PF 10 MG/1 ML SDV ONE (15:04)
[2017-11-17] MEDS ORDERED: NEOSTIGMINE METHYLSULFATE 10 MG/10 ML VIAL ONE (15:04)
[2017-11-17] MEDS ORDERED: VECURONIUM BROMIDE INJ 10 MG VIAL IV ONE (15:04)
[2017-11-17] MEDS ORDERED: GLYCOPYRROLATE INJ 0.4 MG/2 ML VIAL ONE (15:04)
[2017-11-17] MEDS: BENZOCAINE/MENTHOL SORE THROAT LOZENGE BUCCAL PRN ×2 (17:09→22:17)
[2017-11-17] MEDS: DOCUSATE SODIUM 100 MG CAPSULE PO SCH (17:09)
[2017-11-17] MEDS ORDERED: LORATADINE 10 MG TABLET PO PRN (18:19)
[2017-11-17] MEDS: TRAMADOL HCL 50 MG TABLET PO PRN (20:39)
[2017-11-17] MEDS ORDERED: ATORVASTATIN CALCIUM 40 MG TABLET PO SCH (22:00)
[2017-11-17] MEDS ORDERED: ATORVASTATIN CALCIUM 20 MG TABLET PO SCH (22:00)
[2017-11-18] MEDS: ACETAMINOPHEN INJ/PF 1000 MG/100 ML SDV IV SCH ×2 (00:12→05:31)
[2017-11-18] MEDS: LEVOTHYROXINE SODIUM 0.1 MG TABLET PO SCH (05:31)
--- NOTE | 2017-11-18 09:39 | PDOC PROGRESS REPORT ---
Subjective Progress Note for:: 11/18/17 Reason For Visit: SYMPTOMATIC CHOLELITHIASIS CHOLECYSTITIS No complaints had a good night tolerating diet voiding Physical Exam Vital Signs: Temp Pulse Resp BP Pulse Ox 97.6 F 67 18 133/74 H 97 11/18/17 07:13 11/18/17 07:13 11/18/17 07:13 11/18/17 07:13 11/18/17 07:13 Intake & Output 11/17/17 11/18/17 11/19/17 06:59 06:59 06:59 Intake Total 4282 Output Total 1110 5 Balance 3172 -5 Weight 90.2 kg General appearance: PRESENT: no acute distress GI/Abdominal exam: PRESENT: other - Dressing dry and intact; drain removed uneventfully. Abdomen is distended. Results Laboratory Results: 11/10/17 10:30 11/17/17 07:05 Assessment & Plan - Diagnosis (1) Cholelithiasis Qualifiers: Cholelithiasis location: gallbladder Cholecystitis presence: with cholecystitis Cholecystitis acuity: chronic Biliary obstruction: without biliary obstruction Qualified Code(s): K80.10 - Calculus of gallbladder with chronic cholecystitis without obstruction Is this a current diagnosis for this admission?: Yes Plan: Patient is one day status post open cholecystectomy with lysis of adhesions. Drain removed. She is doing well without complications. She does have an ileus, mild. Recommendations: 1. Keep today, ambulate, permit gas to dissipate 2. Possibly home later today.
[2017-11-18] MEDS: ASPIRIN 81 MG TABLET, ENT COATED PO SCH (09:46)
[2017-11-18] MEDS: AMLODIPINE BESYLATE 10 MG TABLET PO SCH (09:47)
[2017-11-18] MEDS: MULTIVIT-STRESS FORMULA/ZINC TABLET PO SCH (09:48)
[2017-11-18] MEDS: CYCLOBENZAPRINE HCL 10 MG TABLET PO SCH (09:52)
[2017-11-18] MEDS: DOCUSATE SODIUM 100 MG CAPSULE PO SCH ×2 (09:53→17:18)
[2017-11-18] MEDS: FOLIC ACID 1 MG TABLET PO SCH (09:53)
[2017-11-18] MEDS: GLIMEPIRIDE 1 MG TABLET PO SCH ×2 (09:54→17:18)
[2017-11-18] MEDS: MULTIVITAMIN TABLET PO SCH (09:55)
[2017-11-18] MEDS: HYDROCHLOROTHIAZIDE 25 MG TABLET PO SCH (09:55)
[2017-11-18] MEDS: POTASSIUM CHLORIDE 10 MEQ TABLET.SA PO SCH (09:56)
[2017-11-18] MEDS: VITAMIN A 10,000 UNIT CAPSULE PO SCH (09:56)
[2017-11-18] MEDS: SITAGLIPTIN PHOSPHATE 50 MG TABLET PO SCH (09:57)
[2017-11-18] MEDS: VALSARTAN 160 MG TABLET PO SCH (09:57)
[2017-11-18] MEDS: TRAMADOL HCL 50 MG TABLET PO PRN (09:59)
[2017-11-18] MEDS ORDERED: ATORVASTATIN CALCIUM 20 MG TABLET PO ONE (10:00)
[2017-11-18] MEDS ORDERED: (PENDING PHARMACY ID) (Diclofenac Sodium [Voltaren] 1 APPLIC) TP SCH (10:00)
[2017-11-18] MEDS ORDERED: ZINC 15 MG PO SCH (10:00)
[2017-11-18] MEDS ORDERED: ATORVASTATIN CALCIUM 20 MG TABLET PO SCH (10:00)
[2017-11-18] MEDS ORDERED: (PENDING PHARMACY ID) (Vitamin B Complex [B Complex] 1 CAP) PO SCH (10:00)
[2017-11-18] MEDS ORDERED: (PENDING PHARMACY ID) (Multivitamin [Multivitamins] 1 CAP) PO SCH (10:00)
[2017-11-18] MEDS ORDERED: BIOTIN 10 MG PO SCH (10:00)
[2017-11-18] MEDS: KETOROLAC TROMETHAMINE 10 MG TABLET PO PRN (13:19)
[2017-11-18] MEDS: ATORVASTATIN CALCIUM 40 MG TABLET PO SCH (21:03)
[2017-11-19] MEDS: LEVOTHYROXINE SODIUM 0.1 MG TABLET PO SCH (06:39)
[2017-11-19] MEDS: KETOROLAC TROMETHAMINE 10 MG TABLET PO PRN ×2 (06:39→12:40)
[2017-11-19] MEDS: BENZOCAINE/MENTHOL SORE THROAT LOZENGE BUCCAL PRN (07:18)
[2017-11-19] MEDS: ASPIRIN 81 MG TABLET, ENT COATED PO SCH (09:11)
[2017-11-19] MEDS: DOCUSATE SODIUM 100 MG CAPSULE PO SCH ×2 (09:11→17:32)
[2017-11-19] MEDS: MULTIVIT-STRESS FORMULA/ZINC TABLET PO SCH (09:11)
[2017-11-19] MEDS: ATORVASTATIN CALCIUM 40 MG TABLET PO SCH ×2 (09:11→22:10)
[2017-11-19] MEDS: AMLODIPINE BESYLATE 10 MG TABLET PO SCH (09:11)
[2017-11-19] MEDS: CYCLOBENZAPRINE HCL 10 MG TABLET PO SCH (09:11)
[2017-11-19] MEDS: GLIMEPIRIDE 1 MG TABLET PO SCH ×2 (09:12→17:32)
[2017-11-19] MEDS: HYDROCHLOROTHIAZIDE 25 MG TABLET PO SCH (09:12)
[2017-11-19] MEDS: MULTIVITAMIN TABLET PO SCH (09:12)
[2017-11-19] MEDS: FOLIC ACID 1 MG TABLET PO SCH (09:12)
[2017-11-19] MEDS: VITAMIN A 10,000 UNIT CAPSULE PO SCH (09:13)
[2017-11-19] MEDS: VALSARTAN 160 MG TABLET PO SCH (09:13)
[2017-11-19] MEDS: SITAGLIPTIN PHOSPHATE 50 MG TABLET PO SCH (09:13)
[2017-11-19] MEDS: POTASSIUM CHLORIDE 10 MEQ TABLET.SA PO SCH (09:13)
[2017-11-19] MEDS ORDERED: ERGOCALCIFEROL (VITAMIN D2) 50000 UNIT (1.25 MG) CAPSULE PO SCH (10:00)
--- NOTE | 2017-11-19 10:25 | PDOC PROGRESS REPORT ---
Subjective Progress Note for:: 11/19/17 Reason For Visit: SYMPTOMATIC CHOLELITHIASIS CHOLECYSTITIS Physical Exam Vital Signs: Temp Pulse Resp BP Pulse Ox 97.9 F 63 16 124/58 L 96 11/19/17 07:19 11/19/17 07:19 11/19/17 07:19 11/19/17 07:19 11/19/17 07:19 Intake & Output 11/18/17 11/19/17 11/20/17 06:59 06:59 06:59 Intake Total 4282 1350 Output Total 1110 15 Balance 3172 1335 Weight 90.2 kg 84.9 kg Results Laboratory Results: 11/10/17 10:30 11/17/17 07:05 Assessment & Plan - Diagnosis (1) Cholelithiasis Qualifiers: Cholelithiasis location: gallbladder Cholecystitis presence: with cholecystitis Cholecystitis acuity: chronic Biliary obstruction: without biliary obstruction Qualified Code(s): K80.10 - Calculus of gallbladder with chronic cholecystitis without obstruction Is this a current diagnosis for this admission?: Yes - Plan Summary Plan Summary: This is a 67-year-old female status post open cholecystectomy. She reports increased amounts of pain today. She is tolerating a diet. She denies any nausea, vomiting, fevers, chills, chest pain, shortness of breath, or any other complaint. She is ambulating in the hallways. Her incision appears clean, dry , and intact. I have encouraged her to continue with coughing and deep breathing. I have also encouraged her to continue ambulating in the hallway. Once her pain is controlled with oral pain medications, she may be discharged home. Possible discharge home today or tomorrow.
[2017-11-20] MEDS: KETOROLAC TROMETHAMINE 10 MG TABLET PO PRN ×2 (02:37→10:38)
[2017-11-20] MEDS: LEVOTHYROXINE SODIUM 0.1 MG TABLET PO SCH (05:50)
[2017-11-20] MEDS: AMLODIPINE BESYLATE 10 MG TABLET PO SCH (08:13)
[2017-11-20] MEDS: MULTIVIT-STRESS FORMULA/ZINC TABLET PO SCH (08:13)
[2017-11-20] MEDS ORDERED: ONDANSETRON 4 MG TAB.RAPDIS ONE (08:13)
[2017-11-20] MEDS: MULTIVITAMIN TABLET PO SCH (10:07)
[2017-11-20] MEDS: POTASSIUM CHLORIDE 10 MEQ TABLET.SA PO SCH (10:09)
[2017-11-20] MEDS: FOLIC ACID 1 MG TABLET PO SCH (10:09)
[2017-11-20] MEDS: SITAGLIPTIN PHOSPHATE 50 MG TABLET PO SCH (10:11)
[2017-11-20] MEDS: VITAMIN A 10,000 UNIT CAPSULE PO SCH (10:11)
[2017-11-20] MEDS: HYDROCHLOROTHIAZIDE 25 MG TABLET PO SCH (10:11)
[2017-11-20] MEDS: DOCUSATE SODIUM 100 MG CAPSULE PO SCH ×2 (10:11→18:09)
[2017-11-20] MEDS: GLIMEPIRIDE 1 MG TABLET PO SCH ×2 (10:11→19:03)
[2017-11-20] MEDS: CYCLOBENZAPRINE HCL 10 MG TABLET PO SCH (10:12)
[2017-11-20] MEDS: VALSARTAN 160 MG TABLET PO SCH (10:12)
[2017-11-20] MEDS: ATORVASTATIN CALCIUM 40 MG TABLET PO SCH ×2 (10:12→21:13)
[2017-11-20] MEDS: ASPIRIN 81 MG TABLET, ENT COATED PO SCH (10:12)
[2017-11-20] MEDS ORDERED: TRAMADOL HCL 50 MG TABLET PO PRN (12:45)
[2017-11-20] MEDS ORDERED: ONDANSETRON HCL INJ/PF 4 MG/2 ML SDV ONE (12:58)
--- NOTE | 2017-11-20 13:04 | PDOC PROGRESS REPORT ---
Subjective Reason For Visit: SYMPTOMATIC CHOLELITHIASIS CHOLECYSTITIS Physical Exam Vital Signs: Temp Pulse Resp BP Pulse Ox 98.1 F 71 16 140/73 H 98 11/20/17 11:10 11/20/17 11:10 11/20/17 11:10 11/20/17 11:10 11/20/17 11:10 Intake & Output 11/19/17 11/20/17 11/21/17 06:59 06:59 06:59 Intake Total 1350 400 Output Total 15 Balance 1335 400 Weight 84.9 kg 86.2 kg Results Laboratory Results: 11/10/17 10:30 11/17/17 07:05 Assessment & Plan - Diagnosis (1) Cholelithiasis Qualifiers: Cholelithiasis location: gallbladder Cholecystitis presence: with cholecystitis Cholecystitis acuity: chronic Biliary obstruction: without biliary obstruction Qualified Code(s): K80.10 - Calculus of gallbladder with chronic cholecystitis without obstruction Is this a current diagnosis for this admission?: Yes - Plan Summary Plan Summary: This is a 67-year-old female status post open cholecystectomy. This morning she had nausea and vomiting with solid food intake. She was given Zofran, which helped her symptoms. She tried to eat lunch today, but her nausea and vomiting returned. She has no difficulty with liquids, but solids caused vomiting. Her abdominal exam is appropriately tender. She does not exhibit any distention or signs of peritonitis. I will restart her fluids and check lab work. Stat x-rays today. Discontinue Toradol and start Zantac for possible gastritis. The patient cannot be discharged today due to nausea and vomiting. Workup ongoing.
--- NOTE | 2017-11-20 14:00 | RADIOLOGY REPORT (SQ) ---
EXAM DESCRIPTION: ABDOMEN 2 VIEWS COMPLETED DATE/TIME: 11/20/2017 1:51 pm REASON FOR STUDY: nausea, vomiting K80.20 CALCULUS OF GALLBLADDER W/O CHOLECYSTITIS W/O OBSTRUC R11 .2 NAUSEA WITH VOMITING, UNSPECIFIED COMPARISON: None. NUMBER OF VIEWS: Two views. TECHNIQUE: Supine and erect/decubitus radiographic images of the abdomen acquired. LIMITATIONS: None. FINDINGS: FREE AIR: None. No abnormal gas collections. LUNG BASES: Clear. BOWEL GAS PATTERN: Abundant fecal material throughout nondilated colon. CALCIFICATIONS: No suspicious calcifications. SOFT TISSUES: No gross mass or suggestion of organomegaly. HARDWARE: Skin christiano and clips right upper quadrant. Clips right lower quadrant. BONES: No acute fracture. No worrisome bone lesions. OTHER: No other significant finding. IMPRESSION: Fecal retention. No evidence of obstruction. TECHNICAL DOCUMENTATION: JOB ID: [id number] [employer]- All Rights Reserved Reading location - IP/workstation name: [email or web address]
[2017-11-20] MEDS ORDERED: RINGERS SOLUTION,LACTATED 1,000 ML IV PRN (14:11)
[2017-11-20 14:21] LABS: ALANINE AMINOTRANSFERASE 35 U/L (9-52); ALBUMIN 3.9 g/dL (3.5-5.0); ALKALINE PHOSPHATASE 94 U/L (38-126); AMYLASE 43 U/L (30-110); ANION GAP 11 (5-19); ASPARTATE AMINO TRANSFERASE 29 U/L (14-36); BILIRUBIN,DIRECT 0.2 mg/dL (0.0-0.4); BILIRUBIN,TOTAL 0.6 mg/dL (0.2-1.3); BLOOD UREA NITROGEN 23 mg/dL (7-20); CALCIUM 9.6 mg/dL (8.4-10.2); CARBON DIOXIDE 28 mmol/L (22-30); CHLORIDE 103 mmol/L (98-107); GLUCOSE 140 mg/dL (75-110); LIPASE 63.5 U/L (23-300); POTASSIUM 3.7 mmol/L (3.6-5.0); TOTAL PROTEIN 7.1 g/dL (6.3-8.2)
[2017-11-20 14:32] LABS: ABSOLUTE EOSINOPHILS # (AUTO) 0.2 10^3/uL (0.0-0.6); ABSOLUTE LYMPHOCYTES (AUTO) 2.2 10^3/uL (0.5-4.7); ABSOLUTE MONOCYTES (AUTO) 0.5 10^3/uL (0.1-1.4); ABSOLUTE NEUT (AUTO) 5.2 10^3/uL (1.7-8.2); BASOPHILS % (AUTO) 0.5 % (0-2); EOSINOPHILS % (AUTO) 2.1 % (0-6); HEMATOCRIT 34.7 % (36.0-47.0); HEMOGLOBIN 11.6 g/dL (12.0-15.5); LYMPHOCYTES % (AUTO) 27.4 % (13-45); MEAN CORPUSCULAR HEMOGLOBIN 29.1 pg (27.0-33.4); MEAN CORPUSCULAR HGB CONC 33.5 g/dL (32.0-36.0); MEAN CORPUSCULAR VOLUME 87 fl (80-97); PLATELET COUNT 182 10^3/uL (150-450); RED BLOOD COUNT 3.99 10^6/uL (3.72-5.28); RED CELL DISTRIBUTION WIDTH 15.9 % (11.5-14.0); TOTAL CELLS COUNTED % (AUTO) 100 %; WHITE BLOOD COUNT 8.1 10^3/uL (4.0-10.5)
[2017-11-20] MEDS ORDERED: MAGNESIUM CITRATE 296 ML BOTTLE PO ONE (15:22)
[2017-11-20] MEDS: ONDANSETRON HCL INJ/PF 4 MG/2 ML SDV IV PRN ×2 (18:18→23:54)
[2017-11-20] MEDS ORDERED: FAMOTIDINE 20 MG TABLET PO SCH (22:00)
[2017-11-20] MEDS: SUCRALFATE SUSP 1 GM/10 ML UDCUP PO SCH (23:25)
[2017-11-21] MEDS: LEVOTHYROXINE SODIUM 0.1 MG TABLET PO SCH (06:15)
[2017-11-21] MEDS: MULTIVIT-STRESS FORMULA/ZINC TABLET PO SCH (08:12)
[2017-11-21] MEDS: SUCRALFATE SUSP 1 GM/10 ML UDCUP PO SCH (08:12)
[2017-11-21] MEDS: AMLODIPINE BESYLATE 10 MG TABLET PO SCH (08:12)
[2017-11-21 08:56] VITALS: BP 160/87
--- NOTE | 2017-11-21 13:32 | DISCHARGE SUMMARY E ---
Discharge Summary NAME: MERCEDES MODI : 1950 AGE: 67Y ADMITTED: 11/17/2017 DISCHARGED: 11/21/2017 REASON FOR ADMISSION: Cholecystitis with cholelithiasis. SUMMARY OF HOSPITALIZATION: The patient is a 67-year-old -[place] female admitted through ambulatory surgery to the [facility] following laparoscopic conversion to open cholecystectomy. The procedure was performed by Dr. Mcguire. Please see operative note for details. The patient underwent laparoscopic conversion to open cholecystectomy on 11/17/2017. Postoperatively, she was observed overnight and then converted to in-house stay due to postoperative ileus. She had some abdominal bloating which eventually resolved and began to pass gas and tolerated a diet. This did take several days. Her drain was removed on the first postoperative day. She tolerated the procedure well and there were no technical complications. By the 4th postoperative day she was felt to receive maximum benefit from the hospitalization and was discharged home. DISCHARGE DIAGNOSIS: Chronic cholecystitis with cholesterolosis and cholelithiasis, status post laparoscopic cholecystectomy by Dr. Mcguire. DISPOSITION: The patient is discharged home in the care of her family to follow up with Dr. Mcguire in approximately 1-2 weeks. Resume preoperative medications, diet, and activity. DICTATING PHYSICIAN: JC MCGUIRE M.D. [id number] PHY#: [id number] ID: [id number] JOB#: [id number] ACCT: [id number] cc:JC MCGUIRE M.D. >
== END 2017-11-21 09:43 | disposition home or self-care (01) ==
LOC: 2N 06:23 → OROUT 06:23 → EDSTATUS 08:30 → OROUT 12:10 → 2N 12:10 → OROUT 11-21 09:43 → 2N 11-21 09:43
PROVIDERS: ADMIT Surgery; ATTEND Surgery
PROC: 0FT40ZZ Resection of Gallbladder, Open Approach (ICD-10-PCS; 2017-11-17)
PROC: 0DNW0ZZ Release Peritoneum, Open Approach (ICD-10-PCS; 2017-11-17)
PROC: 0FJ44ZZ Inspection of Gallbladder, Percutaneous Endoscopic Approach (ICD-10-PCS; principal; 2017-11-17 08:30)
DX: K80.10 Calculus of gallbladder with chronic cholecystitis without obstruction (principal); K66.0 Peritoneal adhesions (postprocedural) (postinfection); K56.7 Ileus, unspecified; Z53.31 Laparoscopic surgical procedure converted to open procedure; I49.8 Other specified cardiac arrhythmias; I10 Essential (primary) hypertension; E03.9 Hypothyroidism, unspecified; E11.9 Type 2 diabetes mellitus without complications; E78.00 Pure hypercholesterolemia, unspecified; Z98.890 Other specified postprocedural states; Z86.010 Personal history of colon polyps; Z80.8 Family history of malignant neoplasm of other organs or systems; Z79.82 Long term (current) use of aspirin; Z79.899 Other long term (current) drug therapy; Z79.84 Long term (current) use of oral hypoglycemic drugs
CPT/HCPCS: 47600; 49999; 93005; 86900; 86901; 36415 ×2; 86850; 82150 ×2; 83690; 84132; 85025; 85027; 80076; 80048; 80053; 88304 ×2; 74019; 94799; 93010; G0378 ×5; G0379; A9270 ×53; J2250; J3490 ×7; J1100; J1885; J3010; J2270; J2370; J0330; J2405 ×2; J7120; J2704; J0744; J0131 ×2; 790; S0119

== ENCOUNTER → 2018-04-21 | Outpatient (CLI) | payer MEDICARE, OTHER ==
--- NOTE | 2018-04-21 14:16 | WOMENS IMAGING REPORT ---
EXAM DESCRIPTION: 3D SCREENING MAMMO BILAT COMPLETED DATE/TIME: 04/21/2018 1:33 pm REASON FOR STUDY: BILATERAL SCREENING MAMMO 3D/Z12.31 Z12.31 ENCNTR SCREEN MAMMOGRAM FOR MALIGNANT NEOPLASM OF KANE COMPARISON: 03/14/2017 and 09/25/2014. TECHNIQUE: Standard craniocaudal and mediolateral oblique views of each breast recorded using digita l acquisition and breast tomosynthesis. LIMITATIONS: None. FINDINGS: Findings present which are benign by mammographic criteria. No suspicious masses, calcifi cations or architectural distortion. Pertinent benign findings: Stable circumscribed mass in the right breast. A few benign calcification s. Read with the assistance of CAD. .[facility] - R2 Cenova Version 1.3 .[facility] Imaging - R2 Cenova Version 1.3 .[facility] - R2 Cenova Version 2.4 .[facility] - R2 Cenova Version 2.4 .[facility] - R2 [employer] Version 9.2 Benign mammographic findings may include one or more of the following: Smooth masses, popcorn/rim/co arse calcifications, asymmetries, post-procedure changes, and lesions with long-standing stability. IMPRESSION: BENIGN MAMMOGRAPHIC FINDINGS. BIRADS 2 BREAST DENSITY: b. There are scattered areas of fibroglandular density. BIRAD: 2 BENIGN FINDING(S) RECOMMENDATION: RECOMMENDATION: ROUTINE SCREENING COMMENT: The patient has been notified of the results by letter per SA requirements. Additional no tification policies are in place for contacting patient with suspicious or incomplete findings. Quality ID #[id number]: The [employer] recommends an annual screening mammogram for women aged 40 years or over. This facility utilizes a reminder system to ensure that all patients receive reminder letters, and/or direct phone calls for appointments. This includes reminders for routine scr eening mammograms, diagnostic mammograms, or other Breast Imaging Interventions when appropriate. Th is patient will be placed in the appropriate reminder system. The [employer] (ACR) has developed recommendations for screening MRI of the breast s in certain patient populations, to be used in conjunction with mammography. Breast MRI surveillanc e may be appropriate for women with more than 20% lifetime risk of developing breast cancer as deter mined by genetic testing, significant family history of the disease, or history of mantle radiation f or Hodgkins Disease. ACR Practice Guidelines 2008. DBT Technology DBT is a type of tomographic mammography. With conventional mammography, overlapping breast tissue ma y make lesions difficult to detect, even with good compression. DBT uses an x-ray tube that rotates a round the breast, taking images at different angles. These images are then combined to create thin sl ices of the breast that the radiologist can view as a 3D reconstruction. The Hologic unit can perform full-field digital mammograms (2D imaging); or DBT (3D imaging); or both, in a combination mode that quickly performs both the mammogram and the tomosynthesis scan while the breast is still compressed. PQRS 6045F: Fluoroscopic imaging is not utilized for breast tomosynthesis. TECHNICAL DOCUMENTATION: FINDING NUMBER: (1) ASSESSMENT: (1) JOB ID: [id number] [place]- All Rights Reserved Reading location - IP/workstation name: [email or web address]
== END ==
LOC: WI 13:00
PROVIDERS: ATTEND Internal Medicine
DX: Z12.31 Encounter for screening mammogram for malignant neoplasm of breast (principal); N63.10 Unspecified lump in the right breast, unspecified quadrant
CPT/HCPCS: 77063; 77067

== ENCOUNTER 2018-08-30 20:05 | Emergency (ER) | payer MEDICARE, OTHER ==
--- NOTE | 2018-08-30 21:11 | EKG REPORT ---
SEVERITY:- NORMAL ECG - SINUS RHYTHM : Confirmed by: Sadie Goldstein 30-Aug-2018 21:10:53
--- NOTE | 2018-08-30 23:00 | ER Document Report ---
ED General - General Chief Complaint: Hand Pain Stated Complaint: FATIGUE,LEFT HAND SWELLING Time Seen by Provider: 08/30/18 23:00 Primary Care Provider: CLEMENTINA DANIELS MD [Primary Care Provider] - Follow up as needed Mode of Arrival: Ambulatory Information source: Patient Notes: HISTORY OF PRESENT ILLNESS: Patient is a 68-year-old female with a past medical history of hypertension, diabetes, hyperlipidemia, and previous tendonitis of the left arm who presents with sudden onset left-sided arm pain with radiation to her left elbow. Location: Left forearm Onset: Sudden Alleviation: Rest Provocation: "Anytime I use it" Quality: "Sharp, tingling, burning" Radiation: Left elbow Severity: Mild to moderate Timing: Constant History of CAD: None Associated symptoms: No shortness of breath, no nausea or vomiting, no diaphoresis, no numbness of the extremities Additional information: Patient states that she had "a catheterization done about 6 months to a year ago in [place] because of chest pain and they told me that my heart was fine and I did not have any blockages" REVIEW OF SYSTEMS: CONSTITUTIONAL : Denies fever or chills, no sweats. Denies recent illness. EENT: Denies eye, ear, throat, or mouth pain or symptoms. Denies nasal or sinus congestion. CARDIOVASCULAR: Denies chest pain. Denies swelling of the legs. RESPIRATORY: Denies cough, cold, or chest congestion. Denies shortness of breath or difficulty breathing. Denies wheezing. GASTROINTESTINAL: Denies abdominal pain. Denies nausea, vomiting, or diarrhea. Denies constipation. GENITOURINARY: Denies difficulty urinating, painful urination, burning, frequency, or blood in urine. FEMALE GENITOURINARY: Denies vaginal bleeding, abnormal or irregular periods. MUSCULOSKELETAL: Positive for left arm pain. Denies neck or back pain or joint pain or swelling. SKIN: Denies rash or skin lesions. HEMATOLOGIC : Denies easy bruising or bleeding. LYMPHATIC: Denies swollen, enlarged glands. NEUROLOGICAL: Denies altered mental status or loss of consciousness. Denies headache. Denies weakness or paralysis or loss of use of either side. Denies problems with gait or speech. Denies sensory or motor loss. PSYCHIATRIC: Denies anxiety or stress or depression. All other systems reviewed and negative. PHYSICAL EXAMINATION: GENERAL: Well-appearing, well-nourished and in no acute distress. HEAD: Atraumatic, normocephalic. No scalp deformity, depression, or crepitance. EYES: Pupils are 3 mm and equal/round/reactive to light, extraocular movements intact, sclera anicteric, conjunctiva are normal. ENT: Nares patent bilaterally, oropharynx. Moist mucous membranes. No tonsil hypertrophy. NECK: Normal range of motion, supple without lymphadenopathy. LUNGS: Breath sounds present, equal, and clear to auscultation bilaterally. No wheezes, rales, or rhonchi. HEART: Regular rate and rhythm without murmurs, rubs, or gallops. 2+ peripheral pulses. Normal capillary refill. ABDOMEN: Soft, nontender, nondistended. Normoactive bowel sounds. No guarding, no rebound. No masses appreciated. BACK: Normal contour, no midline tenderness. Rectal exam deferred. GENITAL/PELVIC: Deferred. EXTREMITIES: Mild pain on palpation to the medial and lateral epicondyle of the left forearm, increased pain with pronation and supination of the left arm, mildly restricted range of motion secondary to pain, no pitting or edema. No cyanosis. NEUROLOGICAL: No focal neurological deficits. Moves all extremities spontaneously and on command. PSYCH: Normal mood, normal affect. No suicidal thoughts/ideations. No homocidal thoughts/ideations. No hallucinations. SKIN: Warm, dry, normal turgor, no rashes or lesions noted. ASSESSMENT AND PLAN: This patient is a 68-year-old female who presents with pain to the left arm, however there was a report of chest pain earlier that the patient states "it really wasn't my chest it was really my arm." Most likely etiology is tendonitis. 1. Will obtain labs, cardiac enzymes, and reassess after intramuscular Toradol. 2. Will will likely discharge. TRAVEL OUTSIDE OF THE [place] IN LAST 30 DAYS: No - Related Data Allergies/Adverse Reactions: Penicillins Allergy (Mild, Verified 08/30/18 20:06) rash Past Medical History - General Information source: Patient - Social History Smoking Status: Never Smoker Chew tobacco use (# tins/day): No Frequency of alcohol use: None Drug Abuse: None Lives with: Family Family History: Reviewed & Not Pertinent, CAD, Malignancy - Past Medical History Cardiac Medical History: Reports: Hx Atrial Fibrillation, Hx Hypercholesterolemia, Hx Hypertension Denies: Hx Coronary Artery Disease, Hx Heart Attack Pulmonary Medical History: Reports: None Denies: Hx Asthma, Hx Bronchitis, Hx COPD, Hx Pneumonia, Hx Sleep Apnea EENT Medical History: Reports: None Neurological Medical History: Reports: None. Denies: Hx Cerebrovascular Accident, Hx Seizures Endocrine Medical History: Reports: Hx Diabetes Mellitus Type 2, Hx Hypothyroidism. Denies: Hx Diabetes Mellitus Type 1, Hx Hyperthyroidism Renal/ Medical History: Reports: None. Denies: Hx Peritoneal Dialysis Malignancy Medical History: Reports: None GI Medical History: Reports: None Musculoskeletal Medical History: Reports None, Denies Hx Arthritis Skin Medical History: Reports None Psychiatric Medical History: Reports: None Denies: Hx Depression Traumatic Medical History: Reports: None Infectious Medical History: Reports: None. Denies: Hx C-Diff, Hx MRSA Past Surgical History: Reports: Hx Abdominal Surgery - bladder, Hx Appendectomy, Hx Hysterectomy. Denies: Hx Cholecystectomy, Hx Pacemaker - Immunizations Immunizations up to date: Yes Hx Diphtheria, Pertussis, Tetanus Vaccination: Yes History of Influenza Vaccine for 04/2017 - 09/2017 Season: Unknown Hx Pneumococcal Vaccination: 04/24/17 Physical Exam - Vital signs Vitals: Temp Pulse Resp BP Pulse Ox 99.5 F 68 20 171/74 H 97 08/30/18 20:30 08/30/18 20:30 08/30/18 20:30 08/30/18 20:30 08/30/18 20:30 Course - Vital Signs Vital signs: Temp Pulse Resp BP Pulse Ox 98.0 F 68 18 133/67 H 97 08/31/18 03:43 08/30/18 20:30 08/31/18 03:41 08/31/18 03:43 08/31/18 03:41 - Laboratory Result Diagrams: 08/30/18 23:20 08/30/18 23:20 Laboratory results interpreted by me: 08/30/18 08/30/18 08/31/18 23:20 23:20 00:56 Hgb 11.9 L Hct 35.8 L RDW 15.9 H Glucose 140 H Alkaline Phosphatase 151 H Urine Urobilinogen 4.0 H - Diagnostic Test Radiology reviewed: Image reviewed, Reports reviewed Discharge - Discharge Clinical Impression: Tendinitis, de Quervain's Condition: Good Disposition: HOME, SELF-CARE Instructions: Tendonitis ([facility]) Additional Instructions: You have been evaluated in the Emergency Department for arm pain that is related to tendonitis of your arm and was treated with medications. Please follow-up wi th your primary physician as instructed in 1-2 weeks to be rechecked. Return to the Emergency Department if you experience worsening pain, numbness/tingling of the extremity, or any other concerning symptoms. Prescriptions: Diclofenac Sodium 75 mg PO BID #30 tablet.dr Referrals: CLEMENITNA DANIELS MD [Primary Care Provider] - Follow up as needed Print Language: Senegalese
[2018-08-30 23:31] LABS: ABSOLUTE BASOPHILS # (AUTO) 0.1 10^3/uL (0.0-0.2); ABSOLUTE EOSINOPHILS # (AUTO) 0.1 10^3/uL (0.0-0.6); ABSOLUTE LYMPHOCYTES (AUTO) 2.2 10^3/uL (0.5-4.7); ABSOLUTE MONOCYTES (AUTO) 0.6 10^3/uL (0.1-1.4); ABSOLUTE NEUT (AUTO) 5.2 10^3/uL (1.7-8.2); BASOPHILS % (AUTO) 0.9 % (0-2); EOSINOPHILS % (AUTO) 0.8 % (0-6); HEMATOCRIT 35.8 % (36.0-47.0); HEMOGLOBIN 11.9 g/dL (12.0-15.5); LYMPHOCYTES % (AUTO) 26.9 % (13-45); MEAN CORPUSCULAR HEMOGLOBIN 29.5 pg (27.0-33.4); MEAN CORPUSCULAR HGB CONC 33.2 g/dL (32.0-36.0); MEAN CORPUSCULAR VOLUME 89 fl (80-97); MONOCYTES % (AUTO) 7.4 % (3-13); PLATELET COUNT 189 10^3/uL (150-450); RED BLOOD COUNT 4.03 10^6/uL (3.72-5.28); RED CELL DISTRIBUTION WIDTH 15.9 % (11.5-14.0); TOTAL CELLS COUNTED % (AUTO) 100 %; WHITE BLOOD COUNT 8.1 10^3/uL (4.0-10.5)
[2018-08-30 23:48] LABS: ALANINE AMINOTRANSFERASE 29 U/L (9-52); ALBUMIN 4.5 g/dL (3.5-5.0); ALKALINE PHOSPHATASE 151 U/L (38-126); ANION GAP 10 (5-19); ASPARTATE AMINO TRANSFERASE 31 U/L (14-36); BILIRUBIN,DIRECT 0.2 mg/dL (0.0-0.4); BILIRUBIN,TOTAL 0.5 mg/dL (0.2-1.3); BLOOD UREA NITROGEN 15 mg/dL (7-20); CALCIUM 9.4 mg/dL (8.4-10.2); CARBON DIOXIDE 29 mmol/L (22-30); CHLORIDE 104 mmol/L (98-107); CREATINE KINASE 124 U/L (30-135); GLUCOSE 140 mg/dL (75-110); POTASSIUM 3.9 mmol/L (3.6-5.0); SODIUM 142.5 mmol/L (137-145); TOTAL PROTEIN 7.6 g/dL (6.3-8.2)
[2018-08-31] LABS: CREATINE KINASE MB 0.42 ng/mL (<4.55); TROPONIN I < 0.012 ng/mL
[2018-08-31] MEDS ORDERED: KETOROLAC TROMETHAMINE INJ/PF 30 MG/1 ML SDV IV ONE (00:01)
--- NOTE | 2018-08-31 00:37 | RADIOLOGY REPORT (SQ) ---
EXAM DESCRIPTION: XR CHEST 1 VIEW COMPLETED DATE/TME: 08/30/2018 23:59 CLINICAL HISTORY: 68 years, Female, Cough COMPARISON: None. NUMBER OF VIEWS: One TECHNIQUE: AP view of the chest LIMITATIONS: None. FINDINGS: Lungs are clear. There are no pleural abnormalities. The cardiac silhouette and pulmonary vessels are normal. IMPRESSION: No acute cardiopulmonary disease. copyright 2010 [employer]- All Rights Reserved
[2018-08-31 02:40] LABS: APPEARANCE,URINE SLIGHTLY-CLOUDY; BILIRUBIN,URINE NEGATIVE (NEGATIVE); COLOR,URINE YELLOW; GLUCOSE, URINE NEGATIVE (NEGATIVE); KETONES,URINE NEGATIVE (NEGATIVE); LEUKOCYTE ESTERASE,URINE NEGATIVE (NEGATIVE); NITRITE,URINE NEGATIVE (NEGATIVE); PROTEIN,URINE NEGATIVE (NEGATIVE); URINE SPECIFIC GRAVITY 1.024
[2018-08-31 03:45] VITALS: BP 133/67
== END 2018-08-31 03:53 | disposition home or self-care (01) ==
LOC: ER 20:05
DX: M65.4 Radial styloid tenosynovitis [de Quervain] (principal); M79.672 Pain in left foot; M79.89 Other specified soft tissue disorders; R53.83 Other fatigue; M79.602 Pain in left arm; I10 Essential (primary) hypertension; E11.9 Type 2 diabetes mellitus without complications; E78.5 Hyperlipidemia, unspecified
CPT/HCPCS: 93005; 99283; 96374; 36415; 82553; 82550; 85025; 80053; 81001; 84484; 71045; 93010; J1885

== ENCOUNTER 2018-11-13 12:27 | Emergency (ER) | payer OTHER, MEDICARE ==
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
[2018-11-13 14:34] VITALS: BP 157/76
== END 2018-11-13 14:34 | disposition home or self-care (01) ==
LOC: ER 12:27
DX: S20.219A Contusion of unspecified front wall of thorax, initial encounter (principal); S80.11XA Contusion of right lower leg, initial encounter; S50.812A Abrasion of left forearm, initial encounter; R07.9 Chest pain, unspecified; M79.632 Pain in left forearm; M79.661 Pain in right lower leg; V43.52XA Car driver injured in collision with other type car in traffic accident, initial encounter; W22.11XA Striking against or struck by driver side automobile airbag, initial encounter; J44.9 Chronic obstructive pulmonary disease, unspecified; E11.9 Type 2 diabetes mellitus without complications; I10 Essential (primary) hypertension; Z88.0 Allergy status to penicillin
CPT/HCPCS: 71046; 99283

== ENCOUNTER 2020-01-10 06:42 | Day surgery (SDC) | payer MEDICARE, OTHER ==
[~2020-01-10 06:42] MED LIST changes: -ACETAMINOPHEN 325 MG TABLET PO PRN; -CIPROFLOXACIN 400 MG/D5W RTU 400 MG/200 ML RTUPB IV PRN; +DORZOLAMIDE HCL 2%/TIMOLOL MALEAT 0.5% OPH SOLN 10 ML OS PRN; +KETOROLAC TROMETHAMINE 0.45% 4 DROP/0.4 ML DROPERETTE OS PRN; -RINGERS SOLUTION,LACTATED 1,000 ML IV PRN
[2020-01-10] MEDS: TROPICAMIDE 1% OPH SOLN 15 ML OS PRN ×3 (07:05→07:18)
[2020-01-10] MEDS: CYCLOPENTOLATE 0.2%/PHENYLEPHRINE 1% OPH SOLN 2 ML OS PRN ×3 (07:05→07:18)
[2020-01-10] MEDS ORDERED: MIDAZOLAM 2 MG/2 ML INJ ONE (07:05)
[2020-01-10] MEDS: BESIFLOXACIN HCL 0.6% OPH SUSP 5 ML BOTTLE OS PRN ×3 (07:05→07:53)
[2020-01-10] MEDS: TETRACAINE HCL 0.5% OPH SOLN 4 ML OS PRN ×3 (07:05→07:27)
[2020-01-10] MEDS ORDERED: ONDANSETRON HCL INJ/PF 4 MG/2 ML SDV ONE (07:05)
[2020-01-10] MEDS ORDERED: FENTANYL CITRATE INJ/PF 100 MCG/2 ML AMPUL ONE (07:05)
[2020-01-10] MEDS ORDERED: EPINEPHRINE INJ/PF 1 MG/1 ML AMPULE ONE (07:10)
[2020-01-10] MEDS ORDERED: LIDOCAINE 1%/PHENYLEPHRINE 1.5% 1 ML VIAL ONE (07:10)
[2020-01-10] MEDS ORDERED: CHONDR SU A NA/HYALUR INTRAOC KIT (SURGICARE) ONE (07:11)
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
== END 2020-01-10 08:26 | disposition home or self-care (01) ==
LOC: SC 06:42
PROVIDERS: ATTEND Internal Medicine
DX: H25.12 Age-related nuclear cataract, left eye (principal); E03.9 Hypothyroidism, unspecified; I49.9 Cardiac arrhythmia, unspecified; I11.9 Hypertensive heart disease without heart failure; E78.00 Pure hypercholesterolemia, unspecified; Z79.82 Long term (current) use of aspirin; Z79.899 Other long term (current) drug therapy; Z79.84 Long term (current) use of oral hypoglycemic drugs; Z88.0 Allergy status to penicillin
CPT/HCPCS: 66984; 82962; J2250; J3490 ×2; A9270; J0171; J2405; J3010; V2632

== ENCOUNTER 2020-01-31 07:07 | Day surgery (SDC) | payer MEDICARE, OTHER ==
[~2020-01-31 07:07] MED LIST changes: -DORZOLAMIDE HCL 2%/TIMOLOL MALEAT 0.5% OPH SOLN 10 ML OS PRN; +KETOROLAC TROMETHAMINE 0.45% 4 DROP/0.4 ML DROPERETTE OD PRN; -KETOROLAC TROMETHAMINE 0.45% 4 DROP/0.4 ML DROPERETTE OS PRN
[2020-01-31] MEDS ORDERED: ONDANSETRON HCL INJ/PF 4 MG/2 ML SDV ONE (07:16)
[2020-01-31] MEDS ORDERED: MIDAZOLAM 2 MG/2 ML INJ ONE (07:16)
[2020-01-31] MEDS ORDERED: FENTANYL CITRATE INJ/PF 100 MCG/2 ML AMPUL ONE (07:17)
[2020-01-31] MEDS: TROPICAMIDE 1% OPH SOLN 15 ML OD PRN ×3 (07:45→08:05)
[2020-01-31] MEDS: TETRACAINE HCL 0.5% OPH SOLN 4 ML OD PRN ×4 (07:45→08:17)
[2020-01-31] MEDS: BESIFLOXACIN HCL 0.6% OPH SUSP 5 ML BOTTLE OD PRN ×4 (07:46→08:37)
[2020-01-31] MEDS: CYCLOPENTOLATE 0.2%/PHENYLEPHRINE 1% OPH SOLN 2 ML OD PRN ×3 (07:46→08:05)
[2020-01-31] MEDS: LIDOCAINE 1% INJ-PF (10 MG/ML) 30 ML SDV ONE ×2 (08:26)
[2020-01-31] MEDS: EPINEPHRINE INJ/PF 1 MG/1 ML AMPULE ONE ×2 (08:26)
[2020-01-31] MEDS: CHONDR SU A NA/HYALUR INTRAOC KIT (SURGICARE) ONE ×2 (08:26)
[2020-01-31] MEDS: DORZOLAMIDE HCL 2%/TIMOLOL MALEAT 0.5% OPH SOLN 10 ML OD PRN ×2 (08:37)
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
== END 2020-01-31 09:15 | disposition home or self-care (01) ==
LOC: SC 07:07
PROVIDERS: ATTEND Internal Medicine
DX: H25.11 Age-related nuclear cataract, right eye (principal); Z96.1 Presence of intraocular lens; I49.9 Cardiac arrhythmia, unspecified; Z79.82 Long term (current) use of aspirin; Z79.899 Other long term (current) drug therapy; Z79.84 Long term (current) use of oral hypoglycemic drugs; Z88.0 Allergy status to penicillin
CPT/HCPCS: 66984; 82962; V2632; J2250; J3490 ×3; A9270; J0171; J3010; J2405

== ENCOUNTER → 2020-04-02 | Outpatient (CLI) | payer MEDICARE, OTHER ==
--- NOTE | 2020-04-02 10:20 | WOMENS IMAGING REPORT ---
EXAM DESCRIPTION: BILAT SCREENING MAMMO W/CAD IMAGES COMPLETED DATE/TIME: 04/02/2020 10:03 am REASON FOR STUDY: Z12.31 ENCOUNTER FOR SCREENING MAMMOGRAM FOR MALIGNANT NEOPLASM OF OLQEVEI90.31 E NCNTR SCREEN MAMMOGRAM FOR MALIGNANT NEOPLASM OF BREZ78.0 ASYMPTOMATIC MENOPAUSAL STATE COMPARISON: Priors dating back to 2009. EXAM PARAMETERS: Standard craniocaudal and mediolateral oblique views of each breast recorded using digital acquisition. Read with the assistance of CAD. .[facility] - [employer] Director Skills Version 9.2 LIMITATIONS: None. FINDINGS: RIGHT BREAST MASSES: No suspicious masses. CALCIFICATIONS: Clustered calcifications upper outer quadrant about 7.5 cm deep to the nipple. ARCHITECTURAL DISTORTION: None. ASYMMETRY: None noted. OTHER: No other significant findings. LEFT BREAST MASSES: No suspicious masses. CALCIFICATIONS: No new or suspicious calcifications. ARCHITECTURAL DISTORTION: None. ASYMMETRY: None noted. OTHER: No other significant findings. IMPRESSION: Calcifications right breast. 0 Incomplete: Needs Additional Imaging Evaluation and/or prior Mammograms for Comparison. BREAST DENSITY: b. There are scattered areas of fibroglandular density. BIRAD: ASSESSMENT: 0 Incomplete: Needs Additional Imaging Evaluation and/or prior Mammograms for C omparison. RECOMMENDATION: RECOMMENDED FOLLOW-UP: True lateral and magnification views right breast. The patient will be contacted for additional imaging. COMMENT: The patient has been notified of the results by letter per MQSA requirements. Additional no tification policies are in place for contacting patient with suspicious or incomplete findings. Quality ID #225: The [employer] recommends an annual screening mammogram for women aged 40 years or over. This facility utilizes a reminder system to ensure that all patients receive reminder letters, and/or direct phone calls for appointments. This includes reminders for routine scr eening mammograms, diagnostic mammograms, or other Breast Imaging Interventions when appropriate. Th is patient will be placed in the appropriate reminder system. TECHNICAL DOCUMENTATION: FINDING NUMBER: (1) ASSESSMENT: (1) JOB ID: [id number] 2010 [employer]- All Rights Reserved Reading location - IP/workstation name: [email or web address]
--- NOTE | 2020-04-02 12:17 | WOMENS IMAGING REPORT ---
EXAM DESCRIPTION: BONE DENSITY HIP/SPINE IMAGES COMPLETED DATE/TIME: 04/02/2020 10:03 am REASON FOR STUDY: Z78.0 ASYMPTOMATIC MENOPAUSAL STATE Z12.31 ENCNTR SCREEN MAMMOGRAM FOR MALIGNANT NEOPLASM OF KANE Z78.0 ASYMPTOMATIC MENOPAUSAL STATE COMPARISON: 3 prior studies dating back to 2004. TECHNIQUE: Dual-Energy X-ray Absorptiometry (DEXA) of the AP Spine and Hip. LIMITATIONS: None. FINDINGS: LUMBAR SPINE: The bone mineral density (BMD) measured from L1-L4 in the AP projection correlates with a T-score of 1.3, which is normal as defined by the World Health Organization. BMD Change vs Baseline: +2% HIP: The bone mineral density (BMD) measured in the left hip correlates with a T-score of -1.3 in the femo ral neck, which is osteopenia as defined by the World Health Organization. BMD Change vs Baseline: -9.2% 10 year Fracture Risk Assessment: Major Osteoporotic Fracture: 3.5% Hip Fracture: 0.3% IMPRESSION: 1. LUMBAR SPINE WHO CLASSIFICATION: NORMAL. 2. HIP WHO CLASSIFICATION: OSTEOPENIA. OVERALL ASSESSMENT: WHO CLASSIFICATION: NORMAL. COMMENT: The World Health Organization defines low BMD as follows: T-score: Normal: At or above -1.0 Osteopenia: Between -1.0 and -2.5 Osteoporosis: At or below -2.5 without fractures Established osteoporosis: At or below -2.5 with fractures In general, you may wish to consider: Diagnosis Treatment Follow-up DEXA Normal BMD Prevention 2-3 years Osteopenia Prevention/Therapy 1-2 years Osteoporosis Therapy Yearly TECHNICAL DOCUMENTATION: JOB ID: [id number] 2010 [employer]- All Rights Reserved Reading location - IP/workstation name: [email or web address]
== END ==
LOC: WI 09:30
PROVIDERS: ATTEND Physician Assistant
DX: Z12.31 Encounter for screening mammogram for malignant neoplasm of breast (principal); Z78.0 Asymptomatic menopausal state
CPT/HCPCS: 77067; 77080

== ENCOUNTER → 2020-04-10 | Outpatient (CLI) | payer MEDICARE, OTHER ==
--- NOTE | 2020-04-10 10:35 | WOMENS IMAGING REPORT ---
EXAM DESCRIPTION: RIGHT DIAGNOSTIC MAMMO W/CAD IMAGES COMPLETED DATE/TIME: 04/10/2020 10:19 am REASON FOR STUDY: RT BREAST CALCS R92.1 MAMMOGRAPHIC CALCIFCN FOUND ON DIAGNOSTIC IMAGING OF B COMPARISON: 04/02/2020 EXAM PARAMETERS: True lateral and magnification views. LIMITATIONS: None. FINDINGS: BREAST LATERALITY: right MASSES: No suspicious masses. CALCIFICATIONS: Calcifications upper outer quadrant uniform density without evidence of branching or associated mass. ARCHITECTURAL DISTORTION: None. ASYMMETRY: None noted. OTHER: No other significant findings. IMPRESSION: Benign findings. BREAST DENSITY: b. There are scattered areas of fibroglandular density. BIRAD: ASSESSMENT: 2 Benign findings. RECOMMENDATION: RECOMMENDED FOLLOW UP: Birads 1 or 2: The patient should resume routine screening . SPECIFIC INTERVENTION/IMAGING/CONSULTATION RECOMMENDED:No additional intervention/ imaging/consultati on needed at this time. COMMUNICATION:The negative/benign results were communicated to the patient. COMMENT: The patient has been notified of the results by letter per MQSA requirements. Additional no tification policies are in place for contacting patient with suspicious or incomplete findings. Quality ID #[id number]: The [employer] recommends an annual screening mammogram for women aged 40 years or over. This facility utilizes a reminder system to ensure that all patients receive reminder letters, and/or direct phone calls for appointments. This includes reminders for routine scr eening mammograms, diagnostic mammograms, or other Breast Imaging Interventions when appropriate. Th is patient will be placed in the appropriate reminder system. TECHNICAL DOCUMENTATION: FINDING NUMBER: (1) ASSESSMENT: (1) JOB ID: [id number] 2010 [employer]- All Rights Reserved Reading location - IP/workstation name: [email or web address]
== END ==
LOC: WI 09:10
PROVIDERS: ATTEND Physician Assistant
DX: R92.1 Mammographic calcification found on diagnostic imaging of breast (principal)
CPT/HCPCS: 77065